=== PATIENT | male | born 1950 | race Caucasian/White ===

== ENCOUNTER 2017-10-28 10:27 | Inpatient (IN) ==
[2017-10-28] MEDS ORDERED: Propofol 1000 mg/100 ml Inj 1,000 MG/100 ML BOTTLE ONE (10:47)
[2017-10-28 11:20] LABS: Anion Gap 12 meq/L (5-15); Blood Urea Nitrogen 25 mg/dL (7-18); Calcium 8.8 mg/dL (8.5-10.1); Carbon Dioxide 22.1 meq/L (21.0-32.0); Chloride 110 meq/L (98-107); Glomerular Filtration Rate 50 mL/min (>89); Glucose,Random 199 mg/dL (74-106); Potassium 4.2 meq/L (3.5-5.1); Sodium 144 meq/L (136-145)
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
[2017-10-28] MEDS ORDERED: Midazolam Inj 5 MG/ML 1 ML Vial ONE (11:22)
[2017-10-28] MEDS ORDERED: Lidocaine 1% Inj 50 ML Vial ONE (11:29)
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
[2017-10-28] MEDS ORDERED: Midazolam Inj 5 MG/ML 1 ML Vial IV.PUSH ONE (12:30)
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
[2017-10-28] MEDS ORDERED: Propofol 1000 mg/100 ml Inj 1,000 MG/100 ML BOTTLE IV.CONT PRN (12:59)
[2017-10-28] MEDS ORDERED: fentaNYL 10 mcg/mL Premix Drip 2,500 MCG/250 ML BAG IV.SIG PRN (13:01)
[2017-10-28] MEDS ORDERED: Dextrose 50% in Water 50 ML Vial IV.PUSH PRN (13:02)
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
[2017-10-28] MEDS ORDERED: Naloxone Inj 0.4 MG/ML Vial IV.PUSH PRN (13:13)
[2017-10-28] MEDS ORDERED: Post-op Orders (for Pharmacy) OTHER ONE (13:13)
[2017-10-28] MEDS ORDERED: Bisacodyl 10 MG Supp RECTAL PRN (13:13)
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
[2017-10-28] MEDS: Propofol 1000 mg/100 ml Inj 1,000 MG/100 ML BOTTLE IV.CONT PRN ×3 (13:36→19:19)
[2017-10-28] MEDS: fentaNYL 10 mcg/mL Premix Drip 2,500 MCG/250 ML BAG IV.SIG PRN (13:39)
[2017-10-28] MEDS: Sod Chloride 0.9% Inj 1,000 ML IV.CONT SCH ×2 (13:45→23:29)
[2017-10-28 13:54] LABS: ABG Base Excess -2.1 mmol/L (-2-2); ABG PCO2 35 mmHg (38-42); ABG PO2 101 mmHg (61-120)
[2017-10-28] MEDS: Pantoprazole Inj 40 MG Vial IV.PUSH SCH (14:01)
[2017-10-28] MEDS: Oral Hygiene Kit OROPHARYNG SCH (16:10)
[2017-10-28 16:15] LABS: Baso % (Auto) 0.2 % (0.0-2.0); Eos % (Auto) 0.2 % (0.0-4.0); Hematocrit 35.9 % (39.0-51.0); Hemoglobin 11.6 gm/dL (13.0-17.0); Lymph # (Auto) 1.2 th/mm3 (1.0-4.8); Lymph % (Auto) 9.5 % (9.0-44.0); Mean Corpuscular HGB Conc 32.4 % (32.0-36.0); Mean Corpuscular Hemoglobin 29.4 pg (27.0-34.0); Mean Corpuscular Volume 90.8 fL (80.0-100.0); Mean Platelet Volume 8.5 fL (7.0-11.0); Mono # (Auto) 1.3 th/mm3 (0.0-0.9); Mono % (Auto) 10.5 % (0.0-8.0); Neut % (Auto) 79.6 % (16.0-70.0); Platelet Count 191 th/mm3 (150-450); Red Blood Count 3.95 mil/mm3 (4.50-5.90); Red Cell Distribution Width 13.9 % (11.6-17.2); White Blood Count 12.5 th/mm3 (4.0-11.0)
[2017-10-28 16:31] LABS: Activated Partial Thrombo Time 23.8 sec (24.3-30.1); INR 1.1 Ratio; Prothrombin Time 10.9 sec (9.8-11.6)
[2017-10-28] MEDS ORDERED: Docusate Sodium 100 MG Capsule PO SCH (21:00)
[2017-10-28] MEDS: Chlorhexidine 0.12% Oral Kit 15 ML UDC OROPHARYNG SCH (23:29)
[2017-10-28] MEDS: Senna/Docusate Sodium 8.6/50 MG Tablet PO SCH (23:29)
[2017-10-29 00:26] LABS: Amphetamine Screen,Urine Neg (Neg); Barbiturate Screen,Urine Neg (Neg); Cannabinoid Screen,Urine Neg (Neg); Cocaine Screen,Urine Neg (Neg)
[2017-10-29 00:31] LABS: Opiate Screen,Urine Pos (Neg)
[2017-10-29] MEDS: Oral Hygiene Kit OROPHARYNG SCH ×4 (00:57→16:07)
[2017-10-29] MEDS: Propofol 1000 mg/100 ml Inj 1,000 MG/100 ML BOTTLE IV.CONT PRN ×3 (02:08→07:41)
[2017-10-29] MEDS ORDERED: Chlorhexidine Gluconate 2% 1 Pack (2 Cloths) TOPICAL PRN (04:00)
[2017-10-29] MEDS: Chlorhexidine Gluconate 2% 1 Pack (2 Cloths) TOPICAL SCH (04:47)
[2017-10-29] MEDS: fentaNYL 10 mcg/mL Premix Drip 2,500 MCG/250 ML BAG IV.SIG PRN ×2 (04:47→22:29)
--- NOTE | 2017-10-29 05:21 | XR ---
EXAM DATE: 10/29/2017 5:03 AM EDT AGE/SEX: 67 years / Male INDICATIONS: Shortness of breath. CLINICAL DATA: This is the patient's subsequent encounter. Patient reports that signs and symptoms h ave been present for 2 days and indicates a pain score of Nonresponsive. MEDICAL/SURGICAL HISTORY: Non-responsive. Non-responsive. COMPARISON: [facility], CHEST 1V SINGLE AP, 10/28/2017. . FINDINGS: Endotracheal tube and central line are stable. Nasogastric tube descends to the stomach. Left thoraco stomy tube is in place. There is mild asymmetric density over the left chest which may reflect layeri ng effusion or diffuse parenchymal process. Cardiac contours are unchanged. CONCLUSION: Slight interval worsening in aeration on the left. Electronically signed by: Ivan Flores MD 10/29/2017 5:19 AM EDT
[2017-10-29 05:50] LABS: ABG Base Excess -2.4 mmol/L (-2-2); ABG PCO2 32 mmHg (38-42); ABG PO2 117 mmHg (61-120)
[2017-10-29 05:59] LABS: Baso % (Auto) 0.3 % (0.0-2.0); Eos % (Auto) 0.4 % (0.0-4.0); Hematocrit 38.3 % (39.0-51.0); Hemoglobin 12.8 gm/dL (13.0-17.0); Lymph # (Auto) 2.2 th/mm3 (1.0-4.8); Lymph % (Auto) 20.7 % (9.0-44.0); Mean Corpuscular HGB Conc 33.5 % (32.0-36.0); Mean Corpuscular Hemoglobin 29.9 pg (27.0-34.0); Mean Corpuscular Volume 89.2 fL (80.0-100.0); Mean Platelet Volume 8.7 fL (7.0-11.0); Mono # (Auto) 1.2 th/mm3 (0.0-0.9); Mono % (Auto) 11.4 % (0.0-8.0); Neut % (Auto) 67.2 % (16.0-70.0); Platelet Count 200 th/mm3 (150-450); Red Blood Count 4.29 mil/mm3 (4.50-5.90); Red Cell Distribution Width 14.2 % (11.6-17.2); White Blood Count 10.5 th/mm3 (4.0-11.0)
[2017-10-29 06:12] LABS: Alanine Aminotransferase 28 U/L (12-78); Albumin 3.3 g/dL (3.4-5.0); Anion Gap 8 meq/L (5-15); Aspartate Aminotransferase 74 U/L (15-37); Blood Urea Nitrogen 24 mg/dL (7-18); Calcium 8.4 mg/dL (8.5-10.1); Carbon Dioxide 22.8 meq/L (21.0-32.0); Chloride 111 meq/L (98-107); Glomerular Filtration Rate 72 mL/min (>89); Glucose,Random 111 mg/dL (74-106); Sodium 142 meq/L (136-145)
[2017-10-29 06:15] LABS: Alkaline Phosphatase 67 U/L (45-117); Total Protein 7.4 g/dL (6.4-8.2)
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
[2017-10-29] MEDS: Pantoprazole Inj 40 MG Vial IV.PUSH SCH (08:15)
[2017-10-29] MEDS: Senna/Docusate Sodium 8.6/50 MG Tablet PO SCH ×2 (08:15→22:13)
[2017-10-29] MEDS: Chlorhexidine 0.12% Oral Kit 15 ML UDC OROPHARYNG SCH ×2 (08:15→22:13)
[2017-10-29] MEDS: Sod Chloride 0.9% Inj 1,000 ML IV.CONT SCH ×2 (08:15→18:12)
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
--- NOTE | 2017-10-29 10:12 | CT ---
EXAM DATE: 10/29/2017 10:03 AM EDT AGE/SEX: 67 years / Male INDICATIONS: Trauma, follow up bleed. CLINICAL DATA: This is the patient's subsequent encounter. Patient reports that signs and symptoms h ave been present for 1 day and indicates a pain score of Nonresponsive. MEDICAL/SURGICAL HISTORY: None. None. RADIATION DOSE: 64.54 CTDI (mGy) COMPARISON: [facility] [place] HEAD W/O CONTRAST, 10/28/2017. . TECHNIQUE: CT of the head without contrast. Using automated exposure control and adjustment of the mA and/or kV according to patient size, radiation dose was kept as low as reasonably achievable to ob tain optimal diagnostic quality images. DICOM format image data is available electronically for revi ew and comparison. FINDINGS: Cerebrum: Scattered foci of acute subarachnoid hemorrhage are again noted within the high parietal r egions bilaterally. No midline shift is noted. Mild cerebral atrophy is noted bilaterally. No acute i nfarction is noted. No ventriculomegaly is noted. Posterior Fossa: The cerebellum and brainstem are intact. The 4th ventricle is midline. The cerebe llopontine angle is unremarkable. Extracranial: A prosthetic left globe is noted. Shrapnel is noted within the left temporal deep subc utaneous tissues. Mild mucosal thickening is noted within the right sphenoid sinus. Skull: The calvaria is intact. No evidence of skull fracture. CONCLUSION: 1. Scattered foci of acute subarachnoid hemorrhage within the right high parietal regions bilaterall y which are stable. 2. Mild cerebral atrophy. 3. No acute infarct, midline shift or ventriculomegaly. 4. Mild mucosal thickening within the right sphenoid sinus. . Electronically signed by: Po Borjas MD 10/29/2017 10:11 AM EDT
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
--- NOTE | 2017-10-29 21:36 | ECG ---
Date Performed: 10/28/2017 Time Performed: 16:12:15 PTAGE: 67 years EKG: Sinus rhythm NONSPECIFIC T-WAVE ABNORMALITY BORDERLINE ECG NO PREVIOUS TRACING DOCTOR: Jt Mai Interpretating Date/Time 10/29/2017 21:34:28
[2017-10-30] MEDS: Oral Hygiene Kit OROPHARYNG SCH ×4 (01:16→15:27)
[2017-10-30] MEDS: Sod Chloride 0.9% Inj 1,000 ML IV.CONT SCH ×2 (04:52→14:14)
[2017-10-30] MEDS: Chlorhexidine Gluconate 2% 1 Pack (2 Cloths) TOPICAL SCH (05:29)
[2017-10-30 05:36] LABS: Baso # (Auto) 0.1 th/mm3 (0.0-0.2); Baso % (Auto) 0.6 % (0.0-2.0); Eos # (Auto) 0.2 th/mm3 (0.0-0.4); Eos % (Auto) 1.4 % (0.0-4.0); Hematocrit 33.9 % (39.0-51.0); Hemoglobin 11.4 gm/dL (13.0-17.0); Lymph # (Auto) 2.1 th/mm3 (1.0-4.8); Lymph % (Auto) 17.6 % (9.0-44.0); Mean Corpuscular HGB Conc 33.8 % (32.0-36.0); Mean Corpuscular Hemoglobin 29.9 pg (27.0-34.0); Mean Corpuscular Volume 88.7 fL (80.0-100.0); Mean Platelet Volume 8.5 fL (7.0-11.0); Mono # (Auto) 1.4 th/mm3 (0.0-0.9); Mono % (Auto) 11.3 % (0.0-8.0); Neut # (Auto) 8.4 th/mm3 (1.8-7.7); Neut % (Auto) 69.1 % (16.0-70.0); Platelet Count 155 th/mm3 (150-450); Red Blood Count 3.82 mil/mm3 (4.50-5.90); Red Cell Distribution Width 14.6 % (11.6-17.2); White Blood Count 12.2 th/mm3 (4.0-11.0)
[2017-10-30 05:57] LABS: Albumin 2.8 g/dL (3.4-5.0); Anion Gap 10 meq/L (5-15); Aspartate Aminotransferase 44 U/L (15-37); Blood Urea Nitrogen 18 mg/dL (7-18); Calcium 8.2 mg/dL (8.5-10.1); Carbon Dioxide 22.3 meq/L (21.0-32.0); Chloride 110 meq/L (98-107); Glomerular Filtration Rate Greater Than 89 mL/min (>89); Glucose,Random 107 mg/dL (74-106); Potassium 3.5 meq/L (3.5-5.1); Sodium 142 meq/L (136-145)
[2017-10-30 05:58] LABS: Alanine Aminotransferase 19 U/L (12-78)
[2017-10-30 06:00] LABS: Alkaline Phosphatase 58 U/L (45-117); Total Protein 6.9 g/dL (6.4-8.2)
--- NOTE | 2017-10-30 06:05 | XR ---
EXAM DATE: 10/30/2017 4:59 AM EDT AGE/SEX: 67 years / Male INDICATIONS: Shortness of breath. CLINICAL DATA: This is the patient's subsequent encounter. Patient reports that signs and symptoms h ave been present for 3 days and indicates a pain score of Nonresponsive. MEDICAL/SURGICAL HISTORY: Non-responsive. Non-responsive. COMPARISON: [facility], CHEST 1V SINGLE AP, 10/29/2017. . FINDINGS: Endotracheal tube, nasogastric tube and left subclavian central line are stable. Left thoracostomy tu be is noted. Mild haziness in the perihilar regions and left base again noted, however improved parti cularly on the left from prior exam. Cardiac contours are unchanged. CONCLUSION: Slight improvement in aeration. Electronically signed by: Ivan Flores MD 10/30/2017 6:04 AM EDT
[2017-10-30] MEDS: Chlorhexidine 0.12% Oral Kit 15 ML UDC OROPHARYNG SCH ×2 (07:39→20:50)
[2017-10-30] MEDS: Pantoprazole Inj 40 MG Vial IV.PUSH SCH (08:32)
[2017-10-30] MEDS: Senna/Docusate Sodium 8.6/50 MG Tablet PO SCH ×2 (08:33→20:50)
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
[2017-10-30] MEDS: Multivitamin Inj 10 ML, Thiamine Inj 100 MG, Folic Acid Inj 1 MG in Sodium Chlor 0.9% I... IV.SIG SCH (10:42)
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
[2017-10-30] MEDS: Morphine Inj 4 MG/ML Vial IV.PUSH PRN ×3 (12:16→18:49)
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
[2017-10-30] MEDS ORDERED: Labetalol HCl Inj 100 MG/20 ML Vial IV.PUSH ONE (13:45)
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
[2017-10-31] MEDS: Oral Hygiene Kit OROPHARYNG SCH ×4 (01:58→15:14)
[2017-10-31] MEDS: Morphine Inj 4 MG/ML Vial IV.PUSH PRN (02:04)
--- NOTE | 2017-10-31 04:48 | XR ---
EXAM DATE: 10/31/2017 3:52 AM EDT AGE/SEX: 67 years / Male INDICATIONS: Short of breath. CLINICAL DATA: This is the patient's subsequent encounter. Patient reports that signs and symptoms h ave been present for 4 - 6 days and indicates a pain score of Nonresponsive. MEDICAL/SURGICAL HISTORY: Non-responsive. Non-responsive. COMPARISON: [facility] [place], CHEST 1V SINGLE AP, 10/30/2017. . FINDINGS: Mild consolidation and small effusions seen of the left lung base. Left chest tube remains in place. No perceptible pneumothorax. Right lung remains clear. Heart size stable, within normal limits. Endotracheal tube, nasogastric tube and left subclavian line have all been removed. CONCLUSION: 1. Small effusion and mild consolidation at the left lung base. 2. Left chest tube remains in place. No pneumothorax seen. 3. Interim extubation. Nasogastric tube and left subclavian line also removed since yesterday. Electronically signed by: Ivan Welch MD 10/31/2017 4:46 AM EDT
[2017-10-31 05:08] LABS: Baso % (Auto) 0.2 % (0.0-2.0); Eos % (Auto) 0.3 % (0.0-4.0); Hematocrit 35.5 % (39.0-51.0); Hemoglobin 11.7 gm/dL (13.0-17.0); Lymph # (Auto) 1.1 th/mm3 (1.0-4.8); Lymph % (Auto) 7.5 % (9.0-44.0); Mean Corpuscular HGB Conc 32.8 % (32.0-36.0); Mean Corpuscular Hemoglobin 29.5 pg (27.0-34.0); Mean Corpuscular Volume 89.8 fL (80.0-100.0); Mean Platelet Volume 9.6 fL (7.0-11.0); Mono # (Auto) 1.3 th/mm3 (0.0-0.9); Mono % (Auto) 8.6 % (0.0-8.0); Neut # (Auto) 12.5 th/mm3 (1.8-7.7); Neut % (Auto) 83.4 % (16.0-70.0); Platelet Count 169 th/mm3 (150-450); Red Blood Count 3.96 mil/mm3 (4.50-5.90); Red Cell Distribution Width 14.1 % (11.6-17.2)
[2017-10-31] MEDS: Chlorhexidine Gluconate 2% 1 Pack (2 Cloths) TOPICAL SCH (05:17)
[2017-10-31 05:29] LABS: Anion Gap 11 meq/L (5-15); Blood Urea Nitrogen 16 mg/dL (7-18); Calcium 8.5 mg/dL (8.5-10.1); Carbon Dioxide 20.3 meq/L (21.0-32.0); Chloride 110 meq/L (98-107); Glomerular Filtration Rate Greater Than 89 mL/min (>89); Glucose,Random 104 mg/dL (74-106); Potassium 3.6 meq/L (3.5-5.1); Sodium 141 meq/L (136-145)
[2017-10-31] MEDS: Senna/Docusate Sodium 8.6/50 MG Tablet PO SCH ×2 (08:02→21:05)
[2017-10-31] MEDS: Chlorhexidine 0.12% Oral Kit 15 ML UDC OROPHARYNG SCH (08:02)
[2017-10-31] MEDS: Pantoprazole Inj 40 MG Vial IV.PUSH SCH (08:06)
[2017-10-31] MEDS: Sod Chloride 0.9% Inj 1,000 ML IV.CONT SCH (08:07)
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
[2017-10-31 09:38] LABS: ABG Base Excess -2.2 mmol/L (-2-2); ABG PCO2 25 mmHg (38-42); ABG PO2 55 mmHg (61-120)
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
[2017-10-31] MEDS: Enoxaparin Inj 40 MG/0.4 ML Syringe SQ SCH (10:58)
[2017-10-31] MEDS: Multivitamin Inj 10 ML, Thiamine Inj 100 MG, Folic Acid Inj 1 MG in Sodium Chlor 0.9% I... IV.SIG SCH (12:53)
--- NOTE | 2017-10-31 13:51 | P.DIET ---
Nutritional Evaluation Screening comments: NPO Alert. Pt has been npo x [address] if needed.
--- NOTE | 2017-11-01 03:59 | XR ---
EXAM DATE: 11/01/2017 3:55 AM EDT AGE/SEX: 67 years / Male INDICATIONS: Respiratory failure. CLINICAL DATA: This is the patient's subsequent encounter. Patient reports that signs and symptoms h ave been present for 4 - 6 days and indicates a pain score of Nonresponsive. MEDICAL/SURGICAL HISTORY: Non-responsive. Non-responsive. COMPARISON: [facility], CHEST 1V SINGLE AP, 10/31/2017. . FINDINGS: Mild bibasilar consolidation and small left pleural effusion similar to before. Left chest tube is be en removed. I don't see a pneumothorax. Heart size stable, upper limits of normal. A nasogastric tube is been placed, courses into the stomach but tip is not included on the study. CONCLUSION: 1. No significant change mild bibasilar consolidation and small left pleural effusion. 2. Left chest tube out. No pneumothorax. 3. New nasogastric tube that courses into the stomach but tip is not included on the study. Electronically signed by: Ivan Welch MD 11/01/2017 3:58 AM EDT
[2017-11-01 04:38] LABS: Baso % (Auto) 0.1 % (0.0-2.0); Hematocrit 33.4 % (39.0-51.0); Hemoglobin 11.4 gm/dL (13.0-17.0); Lymph # (Auto) 1.1 th/mm3 (1.0-4.8); Lymph % (Auto) 7.6 % (9.0-44.0); Mean Corpuscular HGB Conc 34.1 % (32.0-36.0); Mean Platelet Volume 9.5 fL (7.0-11.0); Mono # (Auto) 1.2 th/mm3 (0.0-0.9); Mono % (Auto) 8.1 % (0.0-8.0); Neut # (Auto) 11.9 th/mm3 (1.8-7.7); Neut % (Auto) 84.2 % (16.0-70.0); Platelet Count 175 th/mm3 (150-450); Red Cell Distribution Width 13.9 % (11.6-17.2); White Blood Count 14.2 th/mm3 (4.0-11.0)
[2017-11-01 05:03] LABS: Anion Gap 13 meq/L (5-15); Blood Urea Nitrogen 21 mg/dL (7-18); Calcium 8.3 mg/dL (8.5-10.1); Carbon Dioxide 21.6 meq/L (21.0-32.0); Chloride 112 meq/L (98-107); Glomerular Filtration Rate Greater Than 89 mL/min (>89); Glucose,Random 92 mg/dL (74-106); Sodium 147 meq/L (136-145)
[2017-11-01 05:17] LABS: Potassium 2.8 meq/L (3.5-5.1)
[2017-11-01] MEDS: Chlorhexidine Gluconate 2% 1 Pack (2 Cloths) TOPICAL SCH (05:24)
[2017-11-01] MEDS: Oral Hygiene Kit OROPHARYNG SCH ×3 (05:24→17:12)
[2017-11-01] MEDS: Sod Chloride 0.9% Inj 1,000 ML IV.CONT SCH ×2 (05:24→17:11)
[2017-11-01 05:36] LABS: ABG Base Excess -2.2 mmol/L (-2-2); ABG PCO2 26 mmHg (38-42); ABG PO2 76 mmHg (61-120)
[2017-11-01] MEDS ORDERED: Potassium Phosphate 500 MG Soluble Tablet PO PRN ×2 (05:48)
[2017-11-01] MEDS ORDERED: Magnesium Sulfate Inj 2 GM in Sodium Chlor 0.9% Inj 96 ML IV.SIG PRN (05:48)
[2017-11-01] MEDS ORDERED: Magnesium Oxide 400 MG Tablet PO PRN (05:48)
[2017-11-01] MEDS ORDERED: Potassium Phosphate Inj 30 MMOL in Sodium Chlor 0.9% Inj 250 ML IV.SIG PRN (05:48)
[2017-11-01] MEDS ORDERED: Sodium Phosphate Inj 30 MMOL in Sodium Chlor 0.9% Inj 250 ML IV.SIG PRN (05:48)
[2017-11-01] MEDS ORDERED: Potassium Chlor 40 mEq Premix 40 MEQ/100 ML PIGGYBACK IV.SIG PRN ×2 (05:48)
[2017-11-01] MEDS ORDERED: Magnesium Sulfate Inj 4 GM in Sodium Chlor 0.9% Inj 92 ML IV.SIG PRN (05:48)
[2017-11-01] MEDS: Potassium Chlor 20 mEq Premix 20 MEQ/100 ML PIGGYBACK IV.SIG PRN ×5 (07:34→22:07)
--- NOTE | 2017-11-01 08:20 | MG ---
cc: Zurdo Hall MD EEG RECORD NUMBER: #[id number]. FINDINGS: 4 Hz activity with underlying 1-2 Hz delta activity occurring 20-40 mV in generalized fashion. Bilateral synchronous waves. No seizure activity noted. Limited driving with photic stimulation. Single lead EKG showing sinus rhythm. INTERPRETATION: Mild to moderate encephalopathy. No epileptic activity. Clinical correlation. Zurdo Hall MD MG/ , 07:00 AM , 07:04 AM
[2017-11-01] MEDS: Pantoprazole Inj 40 MG Vial IV.PUSH SCH (08:54)
[2017-11-01] MEDS: Enoxaparin Inj 40 MG/0.4 ML Syringe SQ SCH (08:54)
[2017-11-01] MEDS: Senna/Docusate Sodium 8.6/50 MG Tablet PO SCH (08:55)
[2017-11-01] MEDS: Multivitamin Inj 10 ML, Thiamine Inj 100 MG, Folic Acid Inj 1 MG in Sodium Chlor 0.9% I... IV.SIG SCH (11:13)
[2017-11-01] MEDS ORDERED: Propofol Inj 500 MG/50 ML Vial ONE (11:58)
--- NOTE | 2017-11-01 12:53 | XR ---
EXAM DATE: 11/01/2017 12:47 PM EDT AGE/SEX: 67 years / Male INDICATIONS: ET tube placement. CLINICAL DATA: This is the patient's subsequent encounter. Patient reports that signs and symptoms h ave been present for 4 - 6 days and indicates a pain score of Nonresponsive. MEDICAL/SURGICAL HISTORY: Non-responsive. Non-responsive. COMPARISON: [facility] [place]ST 1V SINGLE AP, 11/01/2017. . FINDINGS: There is patchy consolidation and atelectasis in the right lower lobe, and dense retrocardiac opacifi cation with possible small left effusion again seen. Endotracheal tube tip is noted 1.5 cm above the ash. Enteric tube has been removed. CONCLUSION: Endotracheal tube as above. Electronically signed by: Shiva Olsen MD 11/01/2017 12:52 PM EDT
[2017-11-01 13:29] LABS: ABG Base Excess -3.2 mmol/L (-2-2); ABG PCO2 34 mmHg (38-42); ABG PO2 127 mmHg (61-120)
[2017-11-01] MEDS: Propofol 1000 mg/100 ml Inj 1,000 MG/100 ML BOTTLE IV.CONT PRN ×3 (13:55→21:54)
[2017-11-01] MEDS ORDERED: Haloperidol Inj 5 MG/ML Ampul IV.PUSH PRN (14:21)
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
[2017-11-01] MEDS: Midazolam 50 MG/50 ML Inj 50 MG/50 ML BAG IV.CONT PRN (17:36)
--- NOTE | 2017-11-01 21:41 | MP ---
cc: Rosa Stewart MD DATE OF OPERATION: 11/01/2017 PREOPERATIVE DIAGNOSIS: 1. Respiratory insufficiency. 2. Neurologic trauma. 3. Traumatic brain injury. 4. Obtundation. 5. Retained secretions. POSTOPERATIVE DIAGNOSES: 1. Respiratory insufficiency. 2. Neurologic trauma. 3. Traumatic brain injury. 4. Obtundation. 5. Retained secretions. OPERATIVE PROCEDURE: Intubation. SURGEON: Rosa Stewart MD ANESTHESIA: Sedation, propofol and rocuronium. DESCRIPTION OF PROCEDURE: The patient was prepared in the usual fashion, hyperoxygenated with a facemask, given 75 mg of rocuronium and then his oral cavity is visualized. The patient had previous jaw surgery and neck surgery, so neck is inflexible and the mandible does not open too far. The patient also has disarray as far as dentition is concerned and care is taken not to injure any teeth. The patient was a very difficult intubation when he initially came. At this point, the mouth is suctioned out of the secretions and then a GlideScope is inserted. The vocal cords are readily visualized and the size 8 endotracheal tube is placed without difficulty. The breath sounds are checked on both sides and connected to the ventilator. The patient tolerated the procedure well. Rosa Stewart MD SJ/liliya , 04:17 PM , 04:22 PM
[2017-11-02] MEDS: Propofol 1000 mg/100 ml Inj 1,000 MG/100 ML BOTTLE IV.CONT PRN ×5 (00:33→21:51)
[2017-11-02] MEDS: Midazolam 50 MG/50 ML Inj 50 MG/50 ML BAG IV.CONT PRN ×2 (00:33→13:45)
[2017-11-02] MEDS: Potassium Chlor 20 mEq Premix 20 MEQ/100 ML PIGGYBACK IV.SIG PRN (00:34)
--- NOTE | 2017-11-02 03:56 | XR ---
EXAM DATE: 11/02/2017 3:47 AM EDT AGE/SEX: 67 years / Male INDICATIONS: Shortness of breath, possible pulmonary disease. CLINICAL DATA: This is the patient's subsequent encounter. Patient reports that signs and symptoms h ave been present for 4 - 6 days and indicates a pain score of Nonresponsive. MEDICAL/SURGICAL HISTORY: Non-responsive. Non-responsive. COMPARISON: [facility] [place], CHEST 1V SINGLE AP, 11/01/2017. . FINDINGS: Right base has cleared in the interim. On the left, mild consolidation and small effusion at the base not significantly changed. I don't see a pneumothorax. Endotracheal tube tip is about 1.5 cm above the ash, unchanged. There is a nasogastric tube now pr esent with tip in the upper stomach, sidehole near the GE junction. CONCLUSION: 1. Parenchymal consolidation and small effusion at the left lung base not significantly changed. 2. Resolving right base consolidation. 3. New nasogastric tube with tip in the upper stomach, sidehole near the GE junction. 4. No significant change endotracheal tube tip about 1.5 cm above the ash. Electronically signed by: Ivan Welch MD 11/02/2017 3:54 AM EDT
[2017-11-02 04:47] LABS: Baso % (Auto) 0.1 % (0.0-2.0); Eos # (Auto) 0.1 th/mm3 (0.0-0.4); Eos % (Auto) 0.8 % (0.0-4.0); Hematocrit 32.2 % (39.0-51.0); Hemoglobin 10.8 gm/dL (13.0-17.0); Lymph % (Auto) 7.3 % (9.0-44.0); Mean Corpuscular HGB Conc 33.5 % (32.0-36.0); Mean Corpuscular Hemoglobin 30.1 pg (27.0-34.0); Mean Corpuscular Volume 89.7 fL (80.0-100.0); Mono # (Auto) 1.2 th/mm3 (0.0-0.9); Mono % (Auto) 8.7 % (0.0-8.0); Neut # (Auto) 11.4 th/mm3 (1.8-7.7); Neut % (Auto) 83.1 % (16.0-70.0); Platelet Count 165 th/mm3 (150-450); Red Blood Count 3.59 mil/mm3 (4.50-5.90); Red Cell Distribution Width 14.3 % (11.6-17.2); White Blood Count 13.8 th/mm3 (4.0-11.0)
[2017-11-02 05:12] LABS: Albumin 2.4 g/dL (3.4-5.0); Anion Gap 11 meq/L (5-15); Aspartate Aminotransferase 40 U/L (15-37); Blood Urea Nitrogen 23 mg/dL (7-18); Calcium 8.1 mg/dL (8.5-10.1); Carbon Dioxide 21.8 meq/L (21.0-32.0); Chloride 116 meq/L (98-107); Glomerular Filtration Rate Greater Than 89 mL/min (>89); Glucose,Random 91 mg/dL (74-106); Potassium 3.6 meq/L (3.5-5.1); Sodium 149 meq/L (136-145)
[2017-11-02 05:15] LABS: Alanine Aminotransferase 14 U/L (12-78); Alkaline Phosphatase 65 U/L (45-117)
[2017-11-02 06:10] LABS: ABG Base Excess -2.5 mmol/L (-2-2); ABG PCO2 32 mmHg (38-42); ABG PO2 72 mmHg (61-120)
[2017-11-02] MEDS: Oral Hygiene Kit OROPHARYNG SCH ×4 (06:50→16:34)
[2017-11-02] MEDS: Chlorhexidine Gluconate 2% 1 Pack (2 Cloths) TOPICAL SCH (06:51)
[2017-11-02] MEDS: Chlorhexidine 0.12% Oral Kit 15 ML UDC OROPHARYNG SCH ×3 (06:51→21:46)
[2017-11-02] MEDS: Senna/Docusate Sodium 8.6/50 MG Tablet PO SCH ×3 (06:51→21:47)
[2017-11-02] MEDS: Enoxaparin Inj 40 MG/0.4 ML Syringe SQ SCH (08:01)
[2017-11-02] MEDS: Pantoprazole Inj 40 MG Vial IV.PUSH SCH (08:01)
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
[2017-11-02] MEDS: Sod Chloride 0.9% Inj 1,000 ML IV.CONT SCH (13:47)
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
[2017-11-03] MEDS: Oral Hygiene Kit OROPHARYNG SCH ×5 (02:29→23:11)
[2017-11-03] MEDS: Sod Chloride 0.9% Inj 1,000 ML IV.CONT SCH ×2 (02:30→18:07)
[2017-11-03] MEDS: Propofol 1000 mg/100 ml Inj 1,000 MG/100 ML BOTTLE IV.CONT PRN ×3 (03:01→19:45)
[2017-11-03] MEDS: Midazolam 50 MG/50 ML Inj 50 MG/50 ML BAG IV.CONT PRN ×2 (03:02→19:44)
[2017-11-03 03:53] LABS: Baso % (Auto) 0.2 % (0.0-2.0); Eos # (Auto) 0.1 th/mm3 (0.0-0.4); Eos % (Auto) 0.6 % (0.0-4.0); Hematocrit 36.5 % (39.0-51.0); Hemoglobin 12.4 gm/dL (13.0-17.0); Lymph # (Auto) 2.1 th/mm3 (1.0-4.8); Lymph % (Auto) 13.1 % (9.0-44.0); Mean Corpuscular Hemoglobin 30.5 pg (27.0-34.0); Mean Corpuscular Volume 89.8 fL (80.0-100.0); Mean Platelet Volume 10.2 fL (7.0-11.0); Mono # (Auto) 1.6 th/mm3 (0.0-0.9); Mono % (Auto) 10.1 % (0.0-8.0); Neut # (Auto) 12.2 th/mm3 (1.8-7.7); Platelet Count 178 th/mm3 (150-450); Red Blood Count 4.07 mil/mm3 (4.50-5.90); Red Cell Distribution Width 14.1 % (11.6-17.2); White Blood Count 16.1 th/mm3 (4.0-11.0)
[2017-11-03 03:54] LABS: Alanine Aminotransferase 18 U/L (12-78); Albumin 2.5 g/dL (3.4-5.0); Anion Gap 14 meq/L (5-15); Aspartate Aminotransferase 51 U/L (15-37); Blood Urea Nitrogen 24 mg/dL (7-18); Calcium 8.5 mg/dL (8.5-10.1); Carbon Dioxide 21.6 meq/L (21.0-32.0); Chloride 113 meq/L (98-107); Glomerular Filtration Rate Greater Than 89 mL/min (>89); Glucose,Random 100 mg/dL (74-106); Potassium 3.8 meq/L (3.5-5.1); Sodium 149 meq/L (136-145)
[2017-11-03 03:56] LABS: Alkaline Phosphatase 94 U/L (45-117); Total Protein 7.7 g/dL (6.4-8.2)
[2017-11-03 04:24] LABS: Eosinophils 1 % (0-4); Lymphocytes 20 % (9-44); Monocytes 8 % (0-8); Platelet Estimate Normal (Normal)
[2017-11-03 04:25] LABS: Platelet Morphology Normal (Normal)
[2017-11-03 04:26] LABS: Ovalocytes 1+
[2017-11-03 05:57] LABS: ABG Base Excess -0.7 mmol/L (-2-2); ABG PCO2 36 mmHg (38-42); ABG PO2 61 mmHg (61-120)
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
[2017-11-03] MEDS ORDERED: ceFAZolin Inj 2,000 MG in Sodium Chlor 0.9% Inj 100 ML IV.SIG SCH (08:00)
[2017-11-03] MEDS: Chlorhexidine 0.12% Oral Kit 15 ML UDC OROPHARYNG SCH ×2 (08:14→20:22)
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
[2017-11-03] MEDS: Pantoprazole Inj 40 MG Vial IV.PUSH SCH (09:09)
[2017-11-03] MEDS: Senna/Docusate Sodium 8.6/50 MG Tablet PO SCH ×2 (09:09→20:22)
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
--- NOTE | 2017-11-03 15:14 | GIPROC ---
[facility] [address] [facility]. [facility], [address] EGD WITH PEG PROCEDURE REPORT EXAM DATE: 11/03/2017 PATIENT NAME: Po Foster MR#: [id number] BIRTHDATE: 1950 ATTENDING: Sae Zhu MD ORDER #: [id number] BACTERIOLOGY RESEARCH ASSISTANT: Monica Kruger and Venus Barr STATUS: inpatient INDICATIONS: The patient is a 67 yr old male here for an EGD with PEG due to dysphagia and placement of PEG PROCEDURE PERFORMED: EGD with PEG placement MEDICATIONS: None and Per Anesthesia. TOPICAL ANESTHETIC: CONSENT: The patient understands the risks and benefits of the procedure and understands that these risks include, but are not limited to: sedation, allergic reaction, infection, perforation and/or bleeding. Alternative means of evaluation and treatment include, among others: physical exam, x-rays, and/or surgical intervention. The patient elects to proceed with this endoscopic procedure. medical equipment was checked for proper function. Hand hygiene and appropriate measures for infection prevention was taken. After the risks, benefits and alternatives of the procedure were thoroughly explained, Informed consent was verified, confirmed and timeout was successfully executed by the treatment team. The patient was anesthetized with topical anesthesia and the Pentax [id number] endoscope was introduced through the mouth and advanced to the second portion of the duodenum. The instrument was slowly withdrawn as the mucosa was fully examined. Moderate gastritis was found The stomach was then inflated with air, and by a combination of transillumination and manual palpation, the site for the gastrostomy tube placement was selected and marked on the anterior abdominal wall. The skin of the anterior abdomen was surgically prepped and draped with sterile towels. Utilizing strict sterile technique, the selected site was then anesthetized with 1% xylocaine by injection into the skin and subcutaneous tissue. A 1 cm incision was made through the skin and subcutaneous tissue, and the needle/cannula assembly was then passed through the abdominal wall and through the anterior wall of the stomach, maintaining visualization with the endoscope. A snare device previously placed through the instrument channel was then opened and placed around the cannula, the needle was removed, and the insertion wire was passed through the cannula and into the stomach lumen. The snare was then loosened from the cannula, and repositioned to snare the insertion wire. The snare was then pulled up to the endoscope distal tip, and the scope was then withdrawn bringing with it the snare and insertion wire. The insertion wire was then released from the snare, and then loop-attached to the Ponsky 20 Fr gastrostomy tube. Using the "pull technique", the G-tube was then pulled into place by traction on the insertion wire at the abdominal wall end. The G-tube insertion site was then cleansed once again, and the external bolster was placed over the tube to secure it to the abdominal wall. A sterile dressing was then applied, and the procedure terminated. no abnormalities The gastroscope was then slowly withdrawn and removed. ADVERSE EVENT: There were no complications. IMPRESSIONS: 1. Moderate gastritis was found 2. No abnormalities RECOMMENDATIONS: PEG recomendations: 1- NPO for 6 hours except for meds 2- Flush PEG tube every 6 hours with water and after each PEG feeding 3- May resume regular diet in the morning 4- May use Ensure or Boost etc. for PEG tube feeding REPEAT EXAM: procedure as needed Sae Zhu MD eSigned: Sae Zhu MD 11/03/2017 3:14 PM cc: PATIENT NAME: Po Foster MR#: [id number]
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
[2017-11-04] MEDS: Propofol 1000 mg/100 ml Inj 1,000 MG/100 ML BOTTLE IV.CONT PRN ×4 (00:52→22:05)
[2017-11-04] MEDS: Oral Hygiene Kit OROPHARYNG SCH ×4 (03:06→23:24)
[2017-11-04 04:14] LABS: Baso % (Auto) 0.1 % (0.0-2.0); Eos # (Auto) 0.3 th/mm3 (0.0-0.4); Eos % (Auto) 1.6 % (0.0-4.0); Hematocrit 32.4 % (39.0-51.0); Hemoglobin 10.4 gm/dL (13.0-17.0); Lymph # (Auto) 1.6 th/mm3 (1.0-4.8); Lymph % (Auto) 10.2 % (9.0-44.0); Mean Corpuscular HGB Conc 32.1 % (32.0-36.0); Mean Corpuscular Volume 93.3 fL (80.0-100.0); Mean Platelet Volume 10.4 fL (7.0-11.0); Neut # (Auto) 12.9 th/mm3 (1.8-7.7); Neut % (Auto) 82.1 % (16.0-70.0); Platelet Count 109 th/mm3 (150-450); Red Blood Count 3.47 mil/mm3 (4.50-5.90); Red Cell Distribution Width 14.9 % (11.6-17.2); White Blood Count 15.7 th/mm3 (4.0-11.0)
[2017-11-04 04:26] LABS: Alanine Aminotransferase 18 U/L (12-78); Albumin 2.1 g/dL (3.4-5.0); Anion Gap 13 meq/L (5-15); Aspartate Aminotransferase 33 U/L (15-37); Blood Urea Nitrogen 28 mg/dL (7-18); Calcium 8.2 mg/dL (8.5-10.1); Carbon Dioxide 23.2 meq/L (21.0-32.0); Chloride 114 meq/L (98-107); Glomerular Filtration Rate Greater Than 89 mL/min (>89); Glucose,Random 75 mg/dL (74-106); Potassium 3.7 meq/L (3.5-5.1)
[2017-11-04 04:28] LABS: Alkaline Phosphatase 101 U/L (45-117); Sodium 150 meq/L (136-145); Total Protein 7.2 g/dL (6.4-8.2)
--- NOTE | 2017-11-04 04:40 | XR ---
EXAM DATE: 11/04/2017 4:15 AM EDT AGE/SEX: 67 years / Male INDICATIONS: Respiratory disease. CLINICAL DATA: This is the patient's subsequent encounter. Patient reports that signs and symptoms h ave been present for 1 week and indicates a pain score of Nonresponsive. MEDICAL/SURGICAL HISTORY: . Left pneumothorax. Chest tube, left. [place] [facility] [place] S[place]. . FINDINGS: 2 AP views of the chest. Endotracheal tube remains in place. Persistent bilateral lower lung zone pre dominant pulmonary opacity. No significant interval change. No evidence of pleural effusion or pneumo thorax. Cardiomediastinal silhouette within normal limits. CONCLUSION: No significant interval change in bilateral lower lung zone predominant opacity. Electronically signed by: Capo Ballesteros MD 11/04/2017 4:39 AM EDT
[2017-11-04 06:22] LABS: ABG Base Excess -0.2 mmol/L (-2-2); ABG PCO2 35 mmHg (38-42); ABG PO2 81 mmHg (61-120)
[2017-11-04] MEDS: Chlorhexidine 0.12% Oral Kit 15 ML UDC OROPHARYNG SCH ×2 (08:11→21:11)
[2017-11-04] MEDS: Enoxaparin Inj 40 MG/0.4 ML Syringe SQ SCH (08:12)
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
[2017-11-04] MEDS: Pantoprazole Inj 40 MG Vial IV.PUSH SCH (09:09)
[2017-11-04] MEDS: Senna/Docusate Sodium 8.6/50 MG Tablet PO SCH ×2 (09:09→21:11)
[2017-11-04] MEDS: Sod Chloride 0.9% Inj 1,000 ML IV.CONT SCH (11:12)
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
--- NOTE | 2017-11-04 15:05 | P.PNGI ---
Subjective Interval history: Nonresponsive ventilator management currently in the intensive care , status post PEG tube placement on 11/03/2017 <[place] M - Last Filed: 11/04/17 15:09> Physical Exam Vital signs: Vital Signs 11/03/17 16:00 11/03/17 18:36 11/03/17 20:00 Temperature 98.5 F 98.5 F Pulse Rate 80 81 Respiratory Rate 22 20 19 Blood Pressure 128/67 159/101 H Pulse Oximetry 96 98 97 11/03/17 20:38 11/03/17 22:00 11/04/17 00:00 Temperature 97.9 F Pulse Rate 80 83 87 Respiratory Rate 22 16 Blood Pressure 142/68 H Pulse Oximetry 96 96 11/04/17 00:10 11/04/17 02:00 11/04/17 04:00 Temperature 98.8 F Pulse Rate 86 97 H Respiratory Rate 20 26 H Blood Pressure 120/68 Pulse Oximetry 97 96 11/04/17 04:01 11/04/17 04:40 11/04/17 06:00 Temperature Pulse Rate 96 H 98 H Respiratory Rate 19 20 Blood Pressure Pulse Oximetry 94 L 11/04/17 08:00 11/04/17 09:18 11/04/17 10:00 Temperature 99.9 F H Pulse Rate 98 H 100 H 100 H Respiratory Rate 22 19 Blood Pressure 129/67 Pulse Oximetry 94 L 96 11/04/17 12:00 11/04/17 12:10 11/04/17 14:00 Temperature 101.2 F H Pulse Rate 98 H 104 H Respiratory Rate 21 20 Blood Pressure 133/70 Pulse Oximetry 97 97 Intake & Output 11/03/17 11/04/17 11/04/17 18:59 06:59 18:59 Intake Total 205 / 205 485 / 485 1205 / 1205 Output Total 575 / 575 550 / 550 Balance -370 / -370 -65 / -65 1205 / 1205 Weight 94.3 kg Intake: IV 205 / 205 455 / 455 1205 / 1205 Versed Inj 50 mg In 50 ml @ 2 50 / 50 MG/HR 2 mls/hr IV.CONT TITRATE PRN Rx#:[id number] Diprivan 1000 mg/100 ml Inj 1, 100 / 100 200 / 200 000 mg In 100 ml @ 5 MCG/KG/MIN 2.886 mls/hr IV.CONT TITRATE PRN Rx#:[id number] NS Inj 1,000 ML @ 60 mls/hr IV. 1000 / 1000 CONT .[id number] VANESSA Rx#:[id number] Ofirmev Inj 1,000 mg In 100 ml 100 / 100 100 / 100 @ 400 mls/hr IV.SIG Q6H PRN Rx# :[id number] Keppra Inj 500 MG In NS Inj 100 105 / 105 105 / 105 105 / 105 ML @ 400 mls/hr IV.SIG Q12H VANESSA Rx#:[id number] Tube Irrigant 30 / 30 Output: Urine Amount (Catheter) 575 / 575 550 / 550 Indwelling Urethral Catheter 575 / 575 550 / 550 Other: # Bowel Movements 0 - Constitutional no acute distress, obese, obtunded - Routine HEENT Exam ENT: Present: mucous membranes moist - Routine Respiratory Exam Present: accessory muscle use, patient mechanically ventilated, decreased breath sounds (Ventilator management) - Routine Cardiovascular Exam Present: S1, S2 (Distant) - Routine Abdominal Exam Present: soft (Bowel sounds soft no obvious distention), ostomy (Tube with dressing and secured clean dry and intact) - Urinary Catheter Management Indwelling Temp Sensing Catheter Cath placed during this visit: yes Reason for continuing: Hourly intake/output Insertion date: 10/28/17 Insertion time: 12:30 Indwelling Urethral Catheter Cath placed during this visit: no <Tammi Bush - Last Filed: 11/04/17 15:09> Vital signs: Vital Signs 11/03/17 18:36 11/03/17 20:00 11/03/17 20:38 Temperature 98.5 F Pulse Rate 81 80 Respiratory Rate 20 19 22 Blood Pressure 159/101 H Pulse Oximetry 98 97 96 11/03/17 22:00 11/04/17 00:00 11/04/17 00:10 Temperature 97.9 F Pulse Rate 83 87 Respiratory Rate 16 20 Blood Pressure 142/68 H Pulse Oximetry 96 97 11/04/17 02:00 11/04/17 04:00 11/04/17 04:01 Temperature 98.8 F Pulse Rate 86 97 H 96 H Respiratory Rate 26 H 19 Blood Pressure 120/68 Pulse Oximetry 96 11/04/17 04:40 11/04/17 06:00 11/04/17 08:00 Temperature 99.9 F H Pulse Rate 98 H 98 H Respiratory Rate 20 22 Blood Pressure 129/67 Pulse Oximetry 94 L 94 L 11/04/17 09:18 11/04/17 10:00 11/04/17 12:00 Temperature 101.2 F H Pulse Rate 100 H 100 H 98 H Respiratory Rate 19 21 Blood Pressure 133/70 Pulse Oximetry 96 97 11/04/17 12:10 11/04/17 14:00 11/04/17 16:00 Temperature 100.2 F H Pulse Rate 104 H 96 H Respiratory Rate 20 21 Blood Pressure 124/80 Pulse Oximetry 97 97 11/04/17 16:31 Temperature Pulse Rate 93 H Respiratory Rate 20 Blood Pressure Pulse Oximetry 98 Intake & Output 11/03/17 11/04/17 11/04/17 18:59 06:59 18:59 Intake Total 205 / 205 485 / 485 1205 / 1205 Output Total 575 / 575 550 / 550 Balance -370 / -370 -65 / -65 1205 / 1205 Weight 94.3 kg Intake: IV 205 / 205 455 / 455 1205 / 1205 Versed Inj 50 mg In 50 ml @ 2 50 / 50 MG/HR 2 mls/hr IV.CONT TITRATE PRN Rx#:[id number] Diprivan 1000 mg/100 ml Inj 1, 100 / 100 200 / 200 000 mg In 100 ml @ 5 MCG/KG/MIN 2.886 mls/hr IV.CONT TITRATE PRN Rx#:[id number] NS Inj 1,000 ML @ 60 mls/hr IV. 1000 / 1000 CONT .[id number] VANESSA Rx#:[id number] Ofirmev Inj 1,000 mg In 100 ml 100 / 100 100 / 100 @ 400 mls/hr IV.SIG Q6H PRN Rx# :[id number] Keppra Inj 500 MG In NS Inj 100 105 / 105 105 / 105 105 / 105 ML @ 400 mls/hr IV.SIG Q12H VANESSA Rx#:[id number] Tube Irrigant 30 / 30 Output: Urine Amount (Catheter) 575 / 575 550 / 550 Indwelling Urethral Catheter 575 / 575 550 / 550 Other: # Bowel Movements 0 - Urinary Catheter Management Indwelling Temp Sensing Catheter Cath placed during this visit: no Indwelling Urethral Catheter Cath placed during this visit: no <Sae Zhu - Last Filed: 11/04/17 17:57> Results - Labs CBC & Chem 7: 11/04/17 03:01 11/04/17 03:01 Laboratory Results - last 24 hr 11/03/17 11/03/17 11/04/17 18:18 21:10 03:01 WBC 15.7 H RBC 3.47 L Hgb 10.4 L D Hct 32.4 L MCV 93.3 D MCH 30.0 MCHC 32.1 RDW 14.9 Plt Count 109 L D MPV 10.4 Neut % (Auto) 82.1 H Lymph % (Auto) 10.2 [place] % (Auto) 6.0 Eos % (Auto) 1.6 Baso % (Auto) 0.1 Neut # (Auto) 12.9 H Lymph # (Auto) 1.6 [place] # (Auto) 1.0 H Eos # (Auto) 0.3 Baso # (Auto) 0.0 WBC Differential . Differential Comment Auto diff final Puncture Site Patient Temperature O2 Saturation ABG pH ABG pCO2 ABG pO2 ABG HCO3 ABG O2 Content ABG Base Excess ABG Methemoglobin Leonard Test Hemoglobin Carboxyhemoglobin O2 Delivery Device Vent Setting Inspired O2 Critical Value Sodium Potassium Chloride Carbon Dioxide Anion Gap BUN Creatinine Estimated GFR POC Glucose 103 90 Random Glucose Calcium Magnesium Total Bilirubin AST ALT Alkaline Phosphatase Total Protein Albumin 11/04/17 11/04/17 11/04/17 03:01 03:01 06:12 WBC RBC Hgb Hct MCV MCH MCHC RDW Plt Count MPV Neut % (Auto) Lymph % (Auto) [place] % (Auto) Eos % (Auto) Baso % (Auto) Neut # (Auto) Lymph # (Auto) [place] # (Auto) Eos # (Auto) Baso # (Auto) WBC Differential Differential Comment Puncture Site Right radial Patient Temperature 98.6 O2 Saturation 95 ABG pH 7.45 H ABG pCO2 35 L ABG pO2 81 ABG HCO3 23 ABG O2 Content 19.9 ABG Base Excess -0.2 ABG Methemoglobin 0.9 Leonard Test Present Hemoglobin 15.0 Carboxyhemoglobin 1.0 O2 Delivery Device Ventilator Vent Setting See comments Inspired O2 50 Critical Value No Sodium 150 H Potassium 3.7 Chloride 114 H Carbon Dioxide 23.2 Anion Gap 13 BUN 28 H Creatinine 0.73 Estimated GFR Greater than 89 POC Glucose Random Glucose 75 Calcium 8.2 L Magnesium 2.2 Total Bilirubin 1.4 H AST 33 ALT 18 Alkaline Phosphatase 101 Total Protein 7.2 Albumin 2.1 L 11/04/17 08:25 WBC RBC Hgb Hct MCV MCH MCHC RDW Plt Count MPV Neut % (Auto) Lymph % (Auto) [place] % (Auto) Eos % (Auto) Baso % (Auto) Neut # (Auto) Lymph # (Auto) [place] # (Auto) Eos # (Auto) Baso # (Auto) WBC Differential Differential Comment Puncture Site Patient Temperature O2 Saturation ABG pH ABG pCO2 ABG pO2 ABG HCO3 ABG O2 Content ABG Base Excess ABG Methemoglobin Leonard Test Hemoglobin Carboxyhemoglobin O2 Delivery Device Vent Setting Inspired O2 Critical Value Sodium Potassium Chloride Carbon Dioxide Anion Gap BUN Creatinine Estimated GFR POC Glucose 90 Random Glucose Calcium Magnesium Total Bilirubin AST ALT Alkaline Phosphatase Total Protein Albumin - Imaging Impressions Chest X-Ray 11/04/17 06:00 CONCLUSION: No significant interval change in bilateral lower lung zone predominant opacity. <Tammi Bush - Last Filed: 11/04/17 15:09> - Labs CBC & Chem 7: 11/04/17 03:01 11/04/17 03:01 Laboratory Results - last 24 hr 11/03/17 11/03/17 11/04/17 18:18 21:10 03:01 WBC 15.7 H RBC 3.47 L Hgb 10.4 L D Hct 32.4 L MCV 93.3 D MCH 30.0 MCHC 32.1 RDW 14.9 Plt Count 109 L D MPV 10.4 Neut % (Auto) 82.1 H Lymph % (Auto) 10.2 [place] % (Auto) 6.0 Eos % (Auto) 1.6 Baso % (Auto) 0.1 Neut # (Auto) 12.9 H Lymph # (Auto) 1.6 [place] # (Auto) 1.0 H Eos # (Auto) 0.3 Baso # (Auto) 0.0 WBC Differential . Differential Comment Auto diff final Puncture Site Patient Temperature O2 Saturation ABG pH ABG pCO2 ABG pO2 ABG HCO3 ABG O2 Content ABG Base Excess ABG Methemoglobin Leonard Test Hemoglobin Carboxyhemoglobin O2 Delivery Device Vent Setting Inspired O2 Critical Value Sodium Potassium Chloride Carbon Dioxide Anion Gap BUN Creatinine Estimated GFR POC Glucose 103 90 Random Glucose Calcium Magnesium Total Bilirubin AST ALT Alkaline Phosphatase Total Protein Albumin 11/04/17 11/04/17 11/04/17 03:01 03:01 06:12 WBC RBC Hgb Hct MCV MCH MCHC RDW Plt Count MPV Neut % (Auto) Lymph % (Auto) [place] % (Auto) Eos % (Auto) Baso % (Auto) Neut # (Auto) Lymph # (Auto) [place] # (Auto) Eos # (Auto) Baso # (Auto) WBC Differential Differential Comment Puncture Site Right radial Patient Temperature 98.6 O2 Saturation 95 ABG pH 7.45 H ABG pCO2 35 L ABG pO2 81 ABG HCO3 23 ABG O2 Content 19.9 ABG Base Excess -0.2 ABG Methemoglobin 0.9 Leonard Test Present Hemoglobin 15.0 Carboxyhemoglobin 1.0 O2 Delivery Device Ventilator Vent Setting See comments Inspired O2 50 Critical Value No Sodium 150 H Potassium 3.7 Chloride 114 H Carbon Dioxide 23.2 Anion Gap 13 BUN 28 H Creatinine 0.73 Estimated GFR Greater than 89 POC Glucose Random Glucose 75 Calcium 8.2 L Magnesium 2.2 Total Bilirubin 1.4 H AST 33 ALT 18 Alkaline Phosphatase 101 Total Protein 7.2 Albumin 2.1 L 11/04/17 08:25 WBC RBC Hgb Hct MCV MCH MCHC RDW Plt Count MPV Neut % (Auto) Lymph % (Auto) [place] % (Auto) Eos % (Auto) Baso % (Auto) Neut # (Auto) Lymph # (Auto) [place] # (Auto) Eos # (Auto) Baso # (Auto) WBC Differential Differential Comment Puncture Site Patient Temperature O2 Saturation ABG pH ABG pCO2 ABG pO2 ABG HCO3 ABG O2 Content ABG Base Excess ABG Methemoglobin Leonard Test Hemoglobin Carboxyhemoglobin O2 Delivery Device Vent Setting Inspired O2 Critical Value Sodium Potassium Chloride Carbon Dioxide Anion Gap BUN Creatinine Estimated GFR POC Glucose 90 Random Glucose Calcium Magnesium Total Bilirubin AST ALT Alkaline Phosphatase Total Protein Albumin - Imaging Impressions Chest X-Ray 11/04/17 06:00 CONCLUSION: No significant interval change in bilateral lower lung zone predominant opacity. <Sae Zhu - Last Filed: 11/04/17 17:57> Assessment and Plan - Plan 67-year-old male status post PEG tube placement on 11/03/2017. Patient remains in the intensive care unit currently on ventilator management. Gastroenterology was consulted for long-term nutritional support. Currently patient is nonresponsive G-tube is clean dry and intact with dressing. Will start tube feeds today and monitor for any high residuals. There is currently no family available. Moderate gastritis was noted otherwise no complications. GI will sign off but available if patient has any issues or reconsult as needed. Hemoglobin 10.4 mild decrease noted, no obvious bleeding. Tube feedings Jevity 1.5 initiated today at trickle feeds and monitor for any high residuals, protein supplement 3 times a day noted. Appreciate nutritional consult and support. Plan Diet start tube feeds Jevity 1.5 at 10 cc an hour and evaluate per nutritional consult for goal feedings Flush PEG tube every 6 hours with water and after each PEG feeding Change pegs site dressing and monitor for any erythema or acute bleedig Supportive care Monitor labs and hemoglobin Patient was seen per myself and Dr. Zhu, note was written on his behalf <Tammi Bush - Last Filed: 11/04/17 15:09> - Plan Seen and examined with JAIL KEEPER, s/p peg. Tolerating TF, advance rate as tolerated to meet goals. GI will sign off. thank you <Sae Zhu - Last Filed: 11/04/17 17:57>
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
[2017-11-04] MEDS: Beneprotein Powder Packet G-TUBE SCH (18:21)
--- NOTE | 2017-11-04 18:22 | ECG ---
Date Performed: 11/04/2017 Time Performed: 04:06:32 PTAGE: 67 years EKG: Sinus rhythm with multifocal PVCs. Lateral T wave changes are nonspecific Since the previous tracing, no signific ant change noted Abnormal ECG PREVIOUS TRACING : 10/28/2017 16.12 DOCTOR: Saulo Dixon Interpretating Date/Time 11/04/2017 18:19:50
[2017-11-05] MEDS: Propofol 1000 mg/100 ml Inj 1,000 MG/100 ML BOTTLE IV.CONT PRN ×4 (03:07→22:19)
[2017-11-05] MEDS: Oral Hygiene Kit OROPHARYNG SCH ×4 (03:08→23:05)
[2017-11-05 05:34] LABS: Baso % (Auto) 0.2 % (0.0-2.0); Eos # (Auto) 0.2 th/mm3 (0.0-0.4); Eos % (Auto) 1.5 % (0.0-4.0); Hematocrit 29.9 % (39.0-51.0); Hemoglobin 9.9 gm/dL (13.0-17.0); Lymph # (Auto) 1.3 th/mm3 (1.0-4.8); Lymph % (Auto) 10.5 % (9.0-44.0); Mean Corpuscular HGB Conc 33.1 % (32.0-36.0); Mean Corpuscular Hemoglobin 29.7 pg (27.0-34.0); Mean Corpuscular Volume 89.7 fL (80.0-100.0); Mono # (Auto) 1.1 th/mm3 (0.0-0.9); Mono % (Auto) 8.8 % (0.0-8.0); Neut # (Auto) 9.6 th/mm3 (1.8-7.7); Platelet Count 204 th/mm3 (150-450); Red Blood Count 3.33 mil/mm3 (4.50-5.90); Red Cell Distribution Width 14.7 % (11.6-17.2); White Blood Count 12.2 th/mm3 (4.0-11.0)
[2017-11-05 05:53] LABS: ABG Base Excess 0.2 mmol/L (-2-2); ABG PCO2 33 mmHg (38-42); ABG PO2 88 mmHg (61-120)
[2017-11-05 05:55] LABS: Alanine Aminotransferase 21 U/L (12-78); Albumin 1.8 g/dL (3.4-5.0); Anion Gap 10 meq/L (5-15); Aspartate Aminotransferase 57 U/L (15-37); Blood Urea Nitrogen 25 mg/dL (7-18); Calcium 7.8 mg/dL (8.5-10.1); Carbon Dioxide 24.2 meq/L (21.0-32.0); Chloride 115 meq/L (98-107); Glomerular Filtration Rate Greater Than 89 mL/min (>89); Glucose,Random 100 mg/dL (74-106); Potassium 3.1 meq/L (3.5-5.1); Sodium 149 meq/L (136-145)
[2017-11-05 05:57] LABS: Alkaline Phosphatase 129 U/L (45-117); Total Protein 6.9 g/dL (6.4-8.2)
--- NOTE | 2017-11-05 05:59 | XR ---
EXAM DATE: 11/05/2017 6:00 AM EDT AGE/SEX: 67 years / Male INDICATIONS: Shortness of breath. CLINICAL DATA: This is the patient's subsequent encounter. Patient reports that signs and symptoms h ave been present for 1 week and indicates a pain score of Nonresponsive. MEDICAL/SURGICAL HISTORY: . Left pneumothorax. . Chest tube, left. COMPARISON: [facility] [place], CHEST 1V SINGLE AP, 11/04/2017. . FINDINGS: Single AP view the chest. Endotracheal tube remains in place. Persistent bilateral pulmonary parenchy mal opacity at the lung bases unchanged. No evidence of pleural effusion or pneumothorax. Cardiomedia stinal silhouette is unchanged. CONCLUSION: No significant interval change in bilateral lower lung consolidation. Electronically signed by: Capo Ballesteros MD 11/05/2017 5:58 AM EDT
[2017-11-05] MEDS: Potassium Chlor 20 mEq Premix 20 MEQ/100 ML PIGGYBACK IV.SIG PRN ×4 (06:31→14:27)
[2017-11-05] MEDS: Sod Chloride 0.9% Inj 1,000 ML IV.CONT SCH (06:36)
[2017-11-05] MEDS: Chlorhexidine 0.12% Oral Kit 15 ML UDC OROPHARYNG SCH ×2 (07:09→20:08)
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
[2017-11-05] MEDS: Pantoprazole Inj 40 MG Vial IV.PUSH SCH (08:58)
[2017-11-05] MEDS: Enoxaparin Inj 40 MG/0.4 ML Syringe SQ SCH (08:59)
[2017-11-05] MEDS: Beneprotein Powder Packet G-TUBE SCH ×3 (08:59→17:00)
[2017-11-05] MEDS: Famotidine 20 MG Tablet PO SCH ×2 (08:59→20:08)
[2017-11-05] MEDS: Senna/Docusate Sodium 8.6/50 MG Tablet PO SCH ×2 (09:01→20:08)
[2017-11-05] MEDS ORDERED: Vancomycin Consult Pharmacy OTHER PRN (09:36)
[2017-11-05] MEDS ORDERED: Vancomycin Inj 2,000 MG in Sodium Chlor 0.9% Inj 500 ML IV.SIG ONE (12:00)
[2017-11-05] MEDS: Piperacil/Tazo 4.5 GM Premix 4.5 GM/100 ML BAG IV.SIG SCH ×2 (12:20→19:55)
[2017-11-05] MEDS: Enoxaparin Inj 30 MG/0.3 ML Syringe SQ SCH ×2 (12:20→20:08)
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
[2017-11-05 16:18] LABS: Bacteria,Urine Few /hpf; Bilirubin,Urine Negative (Negative); Clarity,Urine Clear (Clear); Color,Urine Yellow (Yellw/Straw); Glucose,Urine (UA) Negative (Negative); Leukocyte Esterase,Urine Small (Negative); Mucus,Urine Few /lpf (Occasional); Nitrite,Urine Negative (Negative); Specific Gravity,Urine 1.033 (1.002-1.035)
[2017-11-05] MEDS: Vancomycin Inj 1,750 MG in Sodium Chlor 0.9% Inj 500 ML IV.SIG SCH (22:19)
[2017-11-06] MEDS: Propofol 1000 mg/100 ml Inj 1,000 MG/100 ML BOTTLE IV.CONT PRN ×5 (02:45→22:54)
[2017-11-06] MEDS: Oral Hygiene Kit OROPHARYNG SCH ×3 (03:22→17:31)
[2017-11-06] MEDS: Piperacil/Tazo 4.5 GM Premix 4.5 GM/100 ML BAG IV.SIG SCH ×3 (03:22→22:02)
[2017-11-06 05:45] LABS: ABG Base Excess 0.2 mmol/L (-2-2); ABG PCO2 34 mmHg (38-42); ABG PO2 90 mmHg (61-120)
--- NOTE | 2017-11-06 05:47 | XR ---
EXAM DATE: 11/06/2017 6:00 AM EDT AGE/SEX: 67 years / Male INDICATIONS: Shortness of breath. CLINICAL DATA: This is the patient's subsequent encounter. Patient reports that signs and symptoms h ave been present for 1 week and indicates a pain score of Nonresponsive. MEDICAL/SURGICAL HISTORY: . Left pneumothorax. . Chest tube, left. [place] [facility] [place]. . FINDINGS: Single AP view the chest. Endotracheal tube remains in place. Persistent patchy bilateral lower lung zone pulmonary parenchymal opacity. Slight increase in apparent size of left pleural effusion. May be positional. No evidence of pneumothorax. Cardiomediastinal silhouette unchanged. CONCLUSION: 1. Possible increase in size of left pleural effusion. 2. No change in bilateral lower lung zone parenchymal opacity. Electronically signed by: Capo Ballesteros MD 11/06/2017 5:45 AM EDT
[2017-11-06 06:29] LABS: Baso % (Auto) 0.2 % (0.0-2.0); Eos # (Auto) 0.4 th/mm3 (0.0-0.4); Eos % (Auto) 4.6 % (0.0-4.0); Hematocrit 31.1 % (39.0-51.0); Hemoglobin 10.3 gm/dL (13.0-17.0); Lymph % (Auto) 10.2 % (9.0-44.0); Mean Platelet Volume 9.9 fL (7.0-11.0); Mono # (Auto) 0.9 th/mm3 (0.0-0.9); Mono % (Auto) 9.6 % (0.0-8.0); Neut # (Auto) 7.2 th/mm3 (1.8-7.7); Neut % (Auto) 75.4 % (16.0-70.0); Platelet Count 211 th/mm3 (150-450); Red Blood Count 3.41 mil/mm3 (4.50-5.90); Red Cell Distribution Width 14.4 % (11.6-17.2); White Blood Count 9.5 th/mm3 (4.0-11.0)
[2017-11-06 06:35] LABS: Alanine Aminotransferase 103 U/L (12-78); Albumin 1.7 g/dL (3.4-5.0); Alkaline Phosphatase 176 U/L (45-117); Anion Gap 9 meq/L (5-15); Aspartate Aminotransferase 310 U/L (15-37); Blood Urea Nitrogen 24 mg/dL (7-18); Calcium 7.9 mg/dL (8.5-10.1); Carbon Dioxide 22.9 meq/L (21.0-32.0); Chloride 115 meq/L (98-107); Glomerular Filtration Rate Greater Than 89 mL/min (>89); Glucose,Random 119 mg/dL (74-106); Potassium 3.4 meq/L (3.5-5.1); Sodium 147 meq/L (136-145); Total Protein 6.6 g/dL (6.4-8.2)
[2017-11-06] MEDS: Sod Chloride 0.9% Inj 1,000 ML IV.CONT SCH ×2 (06:45→13:01)
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
[2017-11-06] MEDS: Chlorhexidine 0.12% Oral Kit 15 ML UDC OROPHARYNG SCH ×2 (08:31→22:03)
[2017-11-06] MEDS ORDERED: Sod Chloride 0.9% Inj 1,000 ML IV.SIG SCH (09:45)
[2017-11-06] MEDS: Beneprotein Powder Packet G-TUBE SCH ×3 (10:00→17:31)
[2017-11-06] MEDS: Enoxaparin Inj 30 MG/0.3 ML Syringe SQ SCH ×2 (10:00→22:02)
[2017-11-06] MEDS: Pantoprazole Inj 40 MG Vial IV.PUSH SCH (10:01)
[2017-11-06] MEDS: Senna/Docusate Sodium 8.6/50 MG Tablet PO SCH ×2 (10:01→22:01)
[2017-11-06] MEDS: Famotidine 20 MG Tablet PO SCH ×2 (10:01→22:02)
[2017-11-06] MEDS: Vancomycin Inj 1,750 MG in Sodium Chlor 0.9% Inj 500 ML IV.SIG SCH ×2 (10:03→22:54)
[2017-11-06] MEDS: Potassium Chloride 25 MEQ Effervescent Tablet PO PRN (10:32)
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
[2017-11-07] MEDS: Oral Hygiene Kit OROPHARYNG SCH ×4 (00:55→16:06)
[2017-11-07] MEDS: Piperacil/Tazo 4.5 GM Premix 4.5 GM/100 ML BAG IV.SIG SCH ×3 (04:31→21:23)
[2017-11-07] MEDS: Propofol 1000 mg/100 ml Inj 1,000 MG/100 ML BOTTLE IV.CONT PRN ×4 (05:15→21:23)
[2017-11-07 06:12] LABS: ABG Base Excess 1.1 mmol/L (-2-2); ABG PCO2 33 mmHg (38-42); ABG PO2 99 mmHg (61-120)
[2017-11-07] MEDS: Sod Chloride 0.9% Inj 1,000 ML IV.CONT SCH (06:24)
[2017-11-07 07:58] LABS: Baso % (Auto) 0.3 % (0.0-2.0); Eos # (Auto) 0.3 th/mm3 (0.0-0.4); Eos % (Auto) 3.4 % (0.0-4.0); Hematocrit 31.8 % (39.0-51.0); Hemoglobin 10.4 gm/dL (13.0-17.0); Lymph # (Auto) 1.1 th/mm3 (1.0-4.8); Lymph % (Auto) 10.7 % (9.0-44.0); Mean Corpuscular HGB Conc 32.9 % (32.0-36.0); Mean Corpuscular Hemoglobin 29.7 pg (27.0-34.0); Mean Corpuscular Volume 90.2 fL (80.0-100.0); Mean Platelet Volume 10.2 fL (7.0-11.0); Mono # (Auto) 0.8 th/mm3 (0.0-0.9); Mono % (Auto) 7.8 % (0.0-8.0); Neut # (Auto) 7.7 th/mm3 (1.8-7.7); Neut % (Auto) 77.8 % (16.0-70.0); Platelet Count 186 th/mm3 (150-450); Red Blood Count 3.52 mil/mm3 (4.50-5.90); Red Cell Distribution Width 14.4 % (11.6-17.2); White Blood Count 9.9 th/mm3 (4.0-11.0)
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
[2017-11-07 08:14] LABS: Albumin 1.5 g/dL (3.4-5.0)
[2017-11-07] MEDS: Enoxaparin Inj 30 MG/0.3 ML Syringe SQ SCH ×2 (08:15→21:24)
[2017-11-07] MEDS: Pantoprazole Inj 40 MG Vial IV.PUSH SCH (08:15)
[2017-11-07 08:16] LABS: Total Protein 6.2 g/dL (6.4-8.2)
[2017-11-07] MEDS: Senna/Docusate Sodium 8.6/50 MG Tablet PO SCH ×2 (08:16→21:24)
[2017-11-07] MEDS: Beneprotein Powder Packet G-TUBE SCH ×3 (08:16→17:48)
[2017-11-07] MEDS: Famotidine 20 MG Tablet PO SCH ×2 (08:16→21:24)
[2017-11-07] MEDS: Chlorhexidine 0.12% Oral Kit 15 ML UDC OROPHARYNG SCH ×2 (08:17→21:24)
[2017-11-07 08:40] LABS: Eosinophils 4 % (0-4); Lymphocytes 17 % (9-44); Metamyelocytes 1 % (0-1); Monocytes 6 % (0-8); Myelocytes 2 % (0-0); Platelet Estimate Normal (Normal); Toxic Granulation 1+
[2017-11-07] MEDS ORDERED: Pharmacy Ordered Lab Info OTHER ONE (09:45)
[2017-11-07] MEDS: Vancomycin Inj 1,750 MG in Sodium Chlor 0.9% Inj 500 ML IV.SIG SCH ×2 (09:59→23:09)
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
[2017-11-07 10:39] LABS: Albumin 1.6 g/dL (3.4-5.0); Anion Gap 9 meq/L (5-15); Blood Urea Nitrogen 15 mg/dL (7-18); Calcium 7.5 mg/dL (8.5-10.1); Carbon Dioxide 22.9 meq/L (21.0-32.0); Chloride 112 meq/L (98-107); Glomerular Filtration Rate Greater Than 89 mL/min (>89); Glucose,Random 129 mg/dL (74-106); Potassium 3.2 meq/L (3.5-5.1); Sodium 144 meq/L (136-145)
[2017-11-07 10:41] LABS: Alanine Aminotransferase 122 U/L (12-78); Aspartate Aminotransferase 212 U/L (15-37)
[2017-11-07 10:44] LABS: Alkaline Phosphatase 198 U/L (45-117); Total Protein 5.9 g/dL (6.4-8.2); Vancomycin,Trough 17.1 mcg/mL (5.0-10.0)
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
--- NOTE | 2017-11-07 13:48 | P.PCN ---
Procedure: Diagnosis: Hypoxemic respiratory failure Procedure: Therapeutic flexible bronchoscopy Narrative: Timeout performed, patient suitably identified. Patient located in the intensive care unit on chemical ventilation through orotracheal intubation. Usual ICU monitoring devices are 100% oxygen and ventilator rate 18 /min. Through a side-port in the ventilator circuit the flexible bronchoscope was delivered in the tracheobronchial tree. The immediate main trachea and mainstem bronchi were clean and normal. Mucosa not inflamed. Distal bronchi had occasional inspissated secretions of white thick sputum but for the most part were clean. All were suctioned and inspected. Branching anatomy was normal. The bronchoscope and endotracheal tube were then withdrawn to the level of the cricoid cartilage such that mechanical ventilation could be continued but visualization was then provided for the insertion of a percutaneous tracheostomy. Following insertion of the new trach tube the scope was delivered down the new trach tube to the main trachea to confirm good position in the main trachea located suitably above the bifurcation. There was no bleeding. The inner cannula was then placed mechanical ventilation was immediately restarted. Pulse oximetry was maintained at greater than 95% throughout the procedure.
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
[2017-11-07] MEDS: Potassium Chloride 25 MEQ Effervescent Tablet PO PRN (16:17)
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
[2017-11-07] MEDS: Potassium Chlor 20 mEq Premix 20 MEQ/100 ML PIGGYBACK IV.SIG PRN (17:05)
[2017-11-08] MEDS: Propofol 1000 mg/100 ml Inj 1,000 MG/100 ML BOTTLE IV.CONT PRN (03:22)
[2017-11-08] MEDS: Sod Chloride 0.9% Inj 1,000 ML IV.CONT SCH (03:23)
[2017-11-08] MEDS: Piperacil/Tazo 4.5 GM Premix 4.5 GM/100 ML BAG IV.SIG SCH ×3 (03:23→21:03)
[2017-11-08] MEDS: Oral Hygiene Kit OROPHARYNG SCH ×4 (03:23→15:55)
[2017-11-08 04:48] LABS: Baso # (Auto) 0.1 th/mm3 (0.0-0.2); Baso % (Auto) 0.5 % (0.0-2.0); Eos # (Auto) 0.4 th/mm3 (0.0-0.4); Eos % (Auto) 2.7 % (0.0-4.0); Hematocrit 30.8 % (39.0-51.0); Hemoglobin 10.1 gm/dL (13.0-17.0); Lymph # (Auto) 1.3 th/mm3 (1.0-4.8); Lymph % (Auto) 9.4 % (9.0-44.0); Mean Corpuscular HGB Conc 32.8 % (32.0-36.0); Mean Corpuscular Hemoglobin 29.7 pg (27.0-34.0); Mean Corpuscular Volume 90.5 fL (80.0-100.0); Mean Platelet Volume 10.7 fL (7.0-11.0); Mono # (Auto) 0.9 th/mm3 (0.0-0.9); Mono % (Auto) 6.5 % (0.0-8.0); Neut # (Auto) 10.9 th/mm3 (1.8-7.7); Neut % (Auto) 80.9 % (16.0-70.0); Platelet Count 239 th/mm3 (150-450); Red Blood Count 3.41 mil/mm3 (4.50-5.90); Red Cell Distribution Width 14.2 % (11.6-17.2); White Blood Count 13.4 th/mm3 (4.0-11.0)
[2017-11-08 05:04] LABS: Anion Gap 11 meq/L (5-15); Blood Urea Nitrogen 14 mg/dL (7-18); Calcium 7.7 mg/dL (8.5-10.1); Carbon Dioxide 25.4 meq/L (21.0-32.0); Chloride 110 meq/L (98-107); Glomerular Filtration Rate Greater Than 89 mL/min (>89); Glucose,Random 137 mg/dL (74-106); Potassium 3.8 meq/L (3.5-5.1); Sodium 146 meq/L (136-145)
[2017-11-08] MEDS: Famotidine 20 MG Tablet PO SCH ×2 (08:16→21:03)
[2017-11-08] MEDS: Chlorhexidine 0.12% Oral Kit 15 ML UDC OROPHARYNG SCH ×2 (08:16→21:03)
[2017-11-08] MEDS: Senna/Docusate Sodium 8.6/50 MG Tablet PO SCH ×2 (08:16→21:04)
[2017-11-08] MEDS: Beneprotein Powder Packet G-TUBE SCH ×3 (08:16→17:18)
[2017-11-08] MEDS: Enoxaparin Inj 30 MG/0.3 ML Syringe SQ SCH ×2 (08:16→21:03)
[2017-11-08 08:19] LABS: Eosinophils 6 % (0-4); Lymphocytes 14 % (9-44); Metamyelocytes 3 % (0-1); Monocytes 6 % (0-8)
[2017-11-08 08:20] LABS: Platelet Estimate Normal (Normal); RBC Morphology Normal (Normal)
[2017-11-08] MEDS: Vancomycin Inj 1,750 MG in Sodium Chlor 0.9% Inj 500 ML IV.SIG SCH ×2 (09:09→22:38)
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
[2017-11-09] MEDS: Oral Hygiene Kit OROPHARYNG SCH ×4 (00:56→15:51)
[2017-11-09 04:10] LABS: Baso % (Auto) 0.3 % (0.0-2.0); Eos # (Auto) 0.3 th/mm3 (0.0-0.4); Eos % (Auto) 2.4 % (0.0-4.0); Hematocrit 31.9 % (39.0-51.0); Hemoglobin 10.2 gm/dL (13.0-17.0); Lymph # (Auto) 1.8 th/mm3 (1.0-4.8); Lymph % (Auto) 13.1 % (9.0-44.0); Mean Corpuscular HGB Conc 31.9 % (32.0-36.0); Mean Corpuscular Volume 90.7 fL (80.0-100.0); Mean Platelet Volume 10.4 fL (7.0-11.0); Mono % (Auto) 7.5 % (0.0-8.0); Neut # (Auto) 10.3 th/mm3 (1.8-7.7); Neut % (Auto) 76.7 % (16.0-70.0); Platelet Count 307 th/mm3 (150-450); Red Blood Count 3.52 mil/mm3 (4.50-5.90); Red Cell Distribution Width 14.8 % (11.6-17.2); White Blood Count 13.4 th/mm3 (4.0-11.0)
[2017-11-09 04:45] LABS: Eosinophils 4 % (0-4); Lymphocytes 16 % (9-44); Metamyelocytes 2 % (0-1); Monocytes 7 % (0-8)
[2017-11-09 04:46] LABS: Platelet Estimate Normal (Normal)
[2017-11-09] MEDS: Piperacil/Tazo 4.5 GM Premix 4.5 GM/100 ML BAG IV.SIG SCH ×3 (05:30→20:09)
[2017-11-09 06:32] LABS: ABG Base Excess 4.4 mmol/L (-2-2); ABG PCO2 35 mmHg (38-42); ABG PO2 90 mmHg (61-120)
[2017-11-09 06:36] LABS: Anion Gap 12 meq/L (5-15); Blood Urea Nitrogen 16 mg/dL (7-18); Calcium 7.5 mg/dL (8.5-10.1); Carbon Dioxide 26.3 meq/L (21.0-32.0); Chloride 106 meq/L (98-107); Glomerular Filtration Rate Greater Than 89 mL/min (>89); Glucose,Random 145 mg/dL (74-106); Potassium 3.1 meq/L (3.5-5.1); Sodium 144 meq/L (136-145)
[2017-11-09] MEDS: Beneprotein Powder Packet G-TUBE SCH ×3 (09:32→17:02)
[2017-11-09] MEDS: Chlorhexidine 0.12% Oral Kit 15 ML UDC OROPHARYNG SCH ×2 (09:32→20:09)
[2017-11-09] MEDS: Enoxaparin Inj 30 MG/0.3 ML Syringe SQ SCH ×2 (09:33→20:09)
[2017-11-09] MEDS: Famotidine 20 MG Tablet PO SCH ×2 (09:33→20:09)
[2017-11-09] MEDS: Senna/Docusate Sodium 8.6/50 MG Tablet PO SCH ×2 (09:33→20:10)
[2017-11-09] MEDS: Potassium Chlor 20 mEq Premix 20 MEQ/100 ML PIGGYBACK IV.SIG PRN ×4 (09:35→15:39)
[2017-11-09] MEDS: Vancomycin Inj 1,750 MG in Sodium Chlor 0.9% Inj 500 ML IV.SIG SCH (09:35)
[2017-11-09] MEDS ORDERED: acetaZOLAMIDE Inj 250 MG in Sodium Chlor 0.9% Inj 50 ML IV.SIG ONE (09:42)
[2017-11-09] MEDS ORDERED: Pharmacy Ordered Lab Info OTHER ONE (09:45)
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
[2017-11-09 11:36] LABS: Albumin 1.7 g/dL (3.4-5.0); Anion Gap 9 meq/L (5-15); Blood Urea Nitrogen 17 mg/dL (7-18); Calcium 8.1 mg/dL (8.5-10.1); Carbon Dioxide 27.7 meq/L (21.0-32.0); Chloride 105 meq/L (98-107); Glomerular Filtration Rate Greater Than 89 mL/min (>89); Glucose,Random 129 mg/dL (74-106); Magnesium 2.1 mg/dL (1.5-2.5); Potassium 3.1 meq/L (3.5-5.1); Sodium 142 meq/L (136-145)
[2017-11-09 11:37] LABS: Alanine Aminotransferase 103 U/L (12-78); Aspartate Aminotransferase 116 U/L (15-37)
[2017-11-09 11:39] LABS: Alkaline Phosphatase 225 U/L (45-117); Total Protein 6.9 g/dL (6.4-8.2); Vancomycin,Trough 20.8 mcg/mL (5.0-10.0)
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
[2017-11-10] MEDS: Piperacil/Tazo 4.5 GM Premix 4.5 GM/100 ML BAG IV.SIG SCH ×2 (03:38→12:37)
[2017-11-10] MEDS: Oral Hygiene Kit OROPHARYNG SCH ×5 (03:39→23:50)
[2017-11-10 04:14] LABS: Baso % (Auto) 0.3 % (0.0-2.0); Eos # (Auto) 0.3 th/mm3 (0.0-0.4); Eos % (Auto) 1.9 % (0.0-4.0); Hematocrit 33.3 % (39.0-51.0); Hemoglobin 10.6 gm/dL (13.0-17.0); Lymph # (Auto) 1.3 th/mm3 (1.0-4.8); Lymph % (Auto) 7.5 % (9.0-44.0); Mean Corpuscular HGB Conc 31.9 % (32.0-36.0); Mean Corpuscular Hemoglobin 28.7 pg (27.0-34.0); Mean Corpuscular Volume 89.9 fL (80.0-100.0); Mean Platelet Volume 10.3 fL (7.0-11.0); Mono # (Auto) 1.1 th/mm3 (0.0-0.9); Mono % (Auto) 6.6 % (0.0-8.0); Neut # (Auto) 14.6 th/mm3 (1.8-7.7); Neut % (Auto) 83.7 % (16.0-70.0); Platelet Count 360 th/mm3 (150-450); Red Cell Distribution Width 14.2 % (11.6-17.2); White Blood Count 17.4 th/mm3 (4.0-11.0)
[2017-11-10 04:34] LABS: Albumin 1.8 g/dL (3.4-5.0); Anion Gap 11 meq/L (5-15); Aspartate Aminotransferase 113 U/L (15-37); Blood Urea Nitrogen 17 mg/dL (7-18); Calcium 8.2 mg/dL (8.5-10.1); Carbon Dioxide 20.9 meq/L (21.0-32.0); Chloride 109 meq/L (98-107); Glomerular Filtration Rate Greater Than 89 mL/min (>89); Glucose,Random 144 mg/dL (74-106); Potassium 3.6 meq/L (3.5-5.1); Sodium 141 meq/L (136-145)
[2017-11-10 04:38] LABS: Alanine Aminotransferase 105 U/L (12-78); Alkaline Phosphatase 238 U/L (45-117); Total Protein 7.3 g/dL (6.4-8.2)
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
[2017-11-10] MEDS ORDERED: Vancomycin Inj 1,750 MG in Sodium Chlor 0.9% Inj 500 ML IV.SIG SCH (06:00)
[2017-11-10 06:02] LABS: ABG Base Excess -3.5 mmol/L (-2-2); ABG PCO2 25 mmHg (38-42); ABG PO2 129 mmHg (61-120)
[2017-11-10] MEDS: Chlorhexidine 0.12% Oral Kit 15 ML UDC OROPHARYNG SCH ×2 (08:00→20:16)
[2017-11-10] MEDS: Beneprotein Powder Packet G-TUBE SCH ×3 (09:00→17:39)
[2017-11-10] MEDS: Enoxaparin Inj 30 MG/0.3 ML Syringe SQ SCH ×2 (09:57→20:16)
[2017-11-10] MEDS: Senna/Docusate Sodium 8.6/50 MG Tablet PO SCH ×2 (09:58→20:16)
[2017-11-10] MEDS: Famotidine 20 MG Tablet PO SCH ×2 (09:58→20:16)
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
[2017-11-10] MEDS: metroNIDAZOLE 500 MG Tablet PO SCH ×2 (15:11→21:03)
--- NOTE | 2017-11-10 15:34 | P.PNPAL ---
Spoke with social work [facility] psychiatric social worker supervisor, Dilcia, regarding CODE STATUS and placement decisions for patient. She states that she needs to speak with the physician as goals do not appear to be clear, since prognosis is for no neurological recovery, yet patient underwent tracheostomy and PEG placement, questionably indicating aggressive goals. Contact information provided and communication sent to Dr. Stewart to contact the psychiatric social worker supervisor and provide the information she requires for further decision-making. Dilcia will contact me once that communication is complete to finalize decision making. .
[2017-11-11 04:23] LABS: Alanine Aminotransferase 87 U/L (12-78); Anion Gap 12 meq/L (5-15); Aspartate Aminotransferase 73 U/L (15-37); Blood Urea Nitrogen 18 mg/dL (7-18); Calcium 8.2 mg/dL (8.5-10.1); Carbon Dioxide 20.2 meq/L (21.0-32.0); Chloride 109 meq/L (98-107); Glomerular Filtration Rate Greater Than 89 mL/min (>89); Glucose,Random 126 mg/dL (74-106); Potassium 3.5 meq/L (3.5-5.1); Sodium 141 meq/L (136-145)
[2017-11-11 04:26] LABS: Alkaline Phosphatase 237 U/L (45-117); Total Protein 7.7 g/dL (6.4-8.2)
[2017-11-11 04:28] LABS: Baso % (Auto) 0.3 % (0.0-2.0); Eos # (Auto) 0.2 th/mm3 (0.0-0.4); Eos % (Auto) 1.4 % (0.0-4.0); Hematocrit 32.4 % (39.0-51.0); Hemoglobin 10.4 gm/dL (13.0-17.0); Lymph # (Auto) 1.8 th/mm3 (1.0-4.8); Lymph % (Auto) 12.4 % (9.0-44.0); Mean Corpuscular Hemoglobin 28.9 pg (27.0-34.0); Mean Corpuscular Volume 90.3 fL (80.0-100.0); Mean Platelet Volume 10.1 fL (7.0-11.0); Mono # (Auto) 1.2 th/mm3 (0.0-0.9); Mono % (Auto) 8.3 % (0.0-8.0); Neut # (Auto) 11.4 th/mm3 (1.8-7.7); Neut % (Auto) 77.6 % (16.0-70.0); Platelet Count 392 th/mm3 (150-450); Red Blood Count 3.59 mil/mm3 (4.50-5.90); Red Cell Distribution Width 14.4 % (11.6-17.2); White Blood Count 14.7 th/mm3 (4.0-11.0)
[2017-11-11] MEDS: metroNIDAZOLE 500 MG Tablet PO SCH ×3 (05:36→21:15)
[2017-11-11] MEDS: Oral Hygiene Kit OROPHARYNG SCH ×3 (05:36→17:02)
[2017-11-11 06:29] LABS: ABG Base Excess -2.2 mmol/L (-2-2); ABG PCO2 25 mmHg (38-42); ABG PO2 75 mmHg (61-120)
[2017-11-11 07:08] LABS: Eosinophils 1 % (0-4); Lymphocytes 12 % (9-44); Metamyelocytes 1 % (0-1); Monocytes 3 % (0-8); Myelocytes 1 % (0-0)
[2017-11-11 07:09] LABS: Platelet Estimate Normal (Normal); Platelet Morphology Normal (Normal); Toxic Granulation 1+
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
[2017-11-11] MEDS: Enoxaparin Inj 30 MG/0.3 ML Syringe SQ SCH ×2 (08:25→20:46)
[2017-11-11] MEDS: Potassium Chloride 25 MEQ Effervescent Tablet PO PRN (08:25)
[2017-11-11] MEDS: Beneprotein Powder Packet G-TUBE SCH ×3 (08:26→17:02)
[2017-11-11] MEDS: Famotidine 20 MG Tablet PO SCH ×2 (08:26→20:47)
[2017-11-11] MEDS: Chlorhexidine 0.12% Oral Kit 15 ML UDC OROPHARYNG SCH ×2 (08:26→20:47)
[2017-11-11] MEDS: Senna/Docusate Sodium 8.6/50 MG Tablet PO SCH ×2 (08:26→20:46)
[2017-11-11] MEDS: Amantadine Liq 100 MG/10 ML UDC PO SCH (12:44)
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
[2017-11-12] MEDS: Oral Hygiene Kit OROPHARYNG SCH ×4 (00:40→18:47)
[2017-11-12 05:09] LABS: Albumin 2.1 g/dL (3.4-5.0); Anion Gap 11 meq/L (5-15); Aspartate Aminotransferase 72 U/L (15-37); Blood Urea Nitrogen 22 mg/dL (7-18); Calcium 8.1 mg/dL (8.5-10.1); Carbon Dioxide 21.4 meq/L (21.0-32.0); Chloride 109 meq/L (98-107); Glomerular Filtration Rate Greater Than 89 mL/min (>89); Glucose,Random 143 mg/dL (74-106); Potassium 4.3 meq/L (3.5-5.1); Sodium 141 meq/L (136-145)
[2017-11-12 05:11] LABS: Alanine Aminotransferase 81 U/L (12-78); Alkaline Phosphatase 244 U/L (45-117); Total Protein 7.9 g/dL (6.4-8.2)
[2017-11-12] MEDS: metroNIDAZOLE 500 MG Tablet PO SCH ×3 (05:22→21:06)
[2017-11-12] MEDS ORDERED: Pharmacy Ordered Lab Info OTHER ONE (05:45)
[2017-11-12 06:21] LABS: ABG Base Excess -2.3 mmol/L (-2-2); ABG PCO2 27 mmHg (38-42); ABG PO2 69 mmHg (61-120)
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
[2017-11-12 08:22] LABS: Baso # (Auto) 0.1 th/mm3 (0.0-0.2); Baso % (Auto) 0.5 % (0.0-2.0); Eos # (Auto) 0.3 th/mm3 (0.0-0.4); Eos % (Auto) 1.7 % (0.0-4.0); Hematocrit 35.5 % (39.0-51.0); Hemoglobin 11.7 gm/dL (13.0-17.0); Lymph # (Auto) 1.9 th/mm3 (1.0-4.8); Lymph % (Auto) 10.3 % (9.0-44.0); Mean Corpuscular HGB Conc 32.9 % (32.0-36.0); Mean Corpuscular Hemoglobin 29.6 pg (27.0-34.0); Mean Corpuscular Volume 89.9 fL (80.0-100.0); Mean Platelet Volume 9.7 fL (7.0-11.0); Mono # (Auto) 1.5 th/mm3 (0.0-0.9); Mono % (Auto) 7.8 % (0.0-8.0); Neut # (Auto) 14.9 th/mm3 (1.8-7.7); Neut % (Auto) 79.7 % (16.0-70.0); Platelet Count 506 th/mm3 (150-450); Red Blood Count 3.95 mil/mm3 (4.50-5.90); Red Cell Distribution Width 14.8 % (11.6-17.2); White Blood Count 18.7 th/mm3 (4.0-11.0)
[2017-11-12] MEDS: Amantadine Liq 100 MG/10 ML UDC PO SCH ×2 (08:46→12:59)
[2017-11-12] MEDS: Chlorhexidine 0.12% Oral Kit 15 ML UDC OROPHARYNG SCH ×2 (08:46→20:55)
[2017-11-12] MEDS: Enoxaparin Inj 30 MG/0.3 ML Syringe SQ SCH ×2 (08:47→20:55)
[2017-11-12] MEDS: Famotidine 20 MG Tablet PO SCH ×2 (08:47→20:56)
[2017-11-12] MEDS: Beneprotein Powder Packet G-TUBE SCH ×3 (08:47→18:47)
[2017-11-12] MEDS: Senna/Docusate Sodium 8.6/50 MG Tablet PO SCH ×2 (08:47→20:56)
[2017-11-12 08:56] LABS: Eosinophils 2 % (0-4); Lymphocytes 17 % (9-44); Monocytes 7 % (0-8); Myelocytes 1 % (0-0); Toxic Granulation 1+
[2017-11-12 08:58] LABS: Platelet Morphology Normal (Normal)
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
[2017-11-13] MEDS: Oral Hygiene Kit OROPHARYNG SCH ×3 (04:15→17:01)
[2017-11-13] MEDS: metroNIDAZOLE 500 MG Tablet PO SCH ×3 (05:56→21:04)
[2017-11-13] MEDS: Amantadine Liq 100 MG/10 ML UDC PO SCH ×2 (06:07→13:05)
[2017-11-13 06:08] LABS: Baso # (Auto) 0.1 th/mm3 (0.0-0.2); Baso % (Auto) 0.8 % (0.0-2.0); Eos # (Auto) 0.3 th/mm3 (0.0-0.4); Eos % (Auto) 1.9 % (0.0-4.0); Hematocrit 32.6 % (39.0-51.0); Lymph # (Auto) 1.7 th/mm3 (1.0-4.8); Lymph % (Auto) 12.5 % (9.0-44.0); Mean Corpuscular HGB Conc 33.8 % (32.0-36.0); Mean Corpuscular Hemoglobin 29.9 pg (27.0-34.0); Mean Corpuscular Volume 88.4 fL (80.0-100.0); Mean Platelet Volume 8.8 fL (7.0-11.0); Mono # (Auto) 0.9 th/mm3 (0.0-0.9); Mono % (Auto) 6.8 % (0.0-8.0); Neut # (Auto) 10.7 th/mm3 (1.8-7.7); Platelet Count 480 th/mm3 (150-450); Red Blood Count 3.69 mil/mm3 (4.50-5.90); Red Cell Distribution Width 14.8 % (11.6-17.2); White Blood Count 13.7 th/mm3 (4.0-11.0)
[2017-11-13 06:36] LABS: Alanine Aminotransferase 63 U/L (12-78); Albumin 2.2 g/dL (3.4-5.0); Anion Gap 11 meq/L (5-15); Aspartate Aminotransferase 44 U/L (15-37); Blood Urea Nitrogen 24 mg/dL (7-18); Calcium 8.5 mg/dL (8.5-10.1); Carbon Dioxide 22.8 meq/L (21.0-32.0); Chloride 105 meq/L (98-107); Glomerular Filtration Rate Greater Than 89 mL/min (>89); Glucose,Random 138 mg/dL (74-106); Potassium 3.9 meq/L (3.5-5.1); Sodium 139 meq/L (136-145)
[2017-11-13 06:39] LABS: Alkaline Phosphatase 256 U/L (45-117); Total Protein 8.5 g/dL (6.4-8.2)
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
[2017-11-13] MEDS: Senna/Docusate Sodium 8.6/50 MG Tablet PO SCH ×2 (08:28→21:04)
[2017-11-13] MEDS: Beneprotein Powder Packet G-TUBE SCH ×3 (08:57→17:01)
[2017-11-13] MEDS: Chlorhexidine 0.12% Oral Kit 15 ML UDC OROPHARYNG SCH ×2 (08:57→21:03)
[2017-11-13] MEDS: Enoxaparin Inj 30 MG/0.3 ML Syringe SQ SCH ×2 (08:57→21:03)
[2017-11-13] MEDS: Famotidine 20 MG Tablet PO SCH ×2 (08:58→21:04)
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
[2017-11-14] MEDS: Oral Hygiene Kit OROPHARYNG SCH ×4 (00:49→17:36)
[2017-11-14] MEDS: metroNIDAZOLE 500 MG Tablet PO SCH ×3 (06:05→21:36)
[2017-11-14] MEDS: Amantadine Liq 100 MG/10 ML UDC PO SCH ×2 (06:05→13:12)
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
[2017-11-14] MEDS: Chlorhexidine 0.12% Oral Kit 15 ML UDC OROPHARYNG SCH ×2 (08:03→20:32)
[2017-11-14] MEDS: Beneprotein Powder Packet G-TUBE SCH ×3 (08:04→17:36)
[2017-11-14] MEDS: Senna/Docusate Sodium 8.6/50 MG Tablet PO SCH ×2 (08:04→20:32)
[2017-11-14] MEDS: levoFLOXacin 750 MG Tablet PO SCH (08:04)
[2017-11-14] MEDS: Famotidine 20 MG Tablet PO SCH ×2 (08:04→20:32)
[2017-11-14] MEDS: Enoxaparin Inj 30 MG/0.3 ML Syringe SQ SCH ×2 (08:04→20:32)
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
--- NOTE | 2017-11-14 09:18 | XR ---
EXAM DATE: 11/14/2017 12:00 AM EDT AGE/SEX: 67 years / Male INDICATIONS: Fever. CLINICAL DATA: This is the patient's subsequent encounter. Patient reports that signs and symptoms h ave been present for 4 - 6 days and indicates a pain score of 4/10. MEDICAL/SURGICAL HISTORY: . Left pneumothorax . Chest tube. [place] [facility] [place]. . FINDINGS: Trach tube in good position. Right lung is clear. Improvement on the left with less fluid and consolidation. The portion of the bony skeleton visualized is unremarkable. CONCLUSION: Improving with less fluid and consolidation on the left. Pleural effusion is probably now small. Electronically signed by: Lex Durbin MD 11/14/2017 9:16 AM EDT
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
[2017-11-15] MEDS: Oral Hygiene Kit OROPHARYNG SCH ×4 (00:30→17:33)
[2017-11-15 06:18] LABS: Anion Gap 13 meq/L (5-15); Blood Urea Nitrogen 24 mg/dL (7-18); Calcium 8.6 mg/dL (8.5-10.1); Carbon Dioxide 24.4 meq/L (21.0-32.0); Chloride 103 meq/L (98-107); Glomerular Filtration Rate Greater Than 89 mL/min (>89); Glucose,Random 118 mg/dL (74-106); Potassium 4.4 meq/L (3.5-5.1)
[2017-11-15 06:19] LABS: Sodium 140 meq/L (136-145)
[2017-11-15] MEDS: metroNIDAZOLE 500 MG Tablet PO SCH ×3 (06:24→21:17)
[2017-11-15] MEDS: Amantadine Liq 100 MG/10 ML UDC PO SCH (06:26)
[2017-11-15 08:37] LABS: Baso # (Auto) 0.1 th/mm3 (0.0-0.2); Baso % (Auto) 0.6 % (0.0-2.0); Eos # (Auto) 0.4 th/mm3 (0.0-0.4); Eos % (Auto) 2.9 % (0.0-4.0); Hematocrit 35.3 % (39.0-51.0); Hemoglobin 11.6 gm/dL (13.0-17.0); Lymph # (Auto) 2.3 th/mm3 (1.0-4.8); Lymph % (Auto) 19.1 % (9.0-44.0); Mean Corpuscular HGB Conc 32.9 % (32.0-36.0); Mean Corpuscular Hemoglobin 29.6 pg (27.0-34.0); Mean Corpuscular Volume 89.9 fL (80.0-100.0); Mean Platelet Volume 9.1 fL (7.0-11.0); Mono % (Auto) 8.4 % (0.0-8.0); Neut # (Auto) 8.4 th/mm3 (1.8-7.7); Platelet Count 498 th/mm3 (150-450); Red Blood Count 3.93 mil/mm3 (4.50-5.90); Red Cell Distribution Width 14.8 % (11.6-17.2); White Blood Count 12.2 th/mm3 (4.0-11.0)
[2017-11-15] MEDS: Enoxaparin Inj 30 MG/0.3 ML Syringe SQ SCH ×2 (09:04→20:24)
[2017-11-15] MEDS: Famotidine 20 MG Tablet PO SCH ×2 (09:04→20:24)
[2017-11-15] MEDS: levoFLOXacin 750 MG Tablet PO SCH (09:04)
[2017-11-15] MEDS: Senna/Docusate Sodium 8.6/50 MG Tablet PO SCH (09:04)
[2017-11-15] MEDS: Chlorhexidine 0.12% Oral Kit 15 ML UDC OROPHARYNG SCH ×2 (09:05→20:24)
[2017-11-15] MEDS: Beneprotein Powder Packet G-TUBE SCH ×3 (09:05→17:33)
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
[2017-11-16] MEDS: Oral Hygiene Kit OROPHARYNG SCH ×4 (02:29→16:15)
[2017-11-16] MEDS: metroNIDAZOLE 500 MG Tablet PO SCH ×3 (05:30→22:40)
[2017-11-16] MEDS: Famotidine 20 MG Tablet PO SCH ×2 (09:15→22:39)
[2017-11-16] MEDS: levoFLOXacin 750 MG Tablet PO SCH (09:15)
[2017-11-16] MEDS: Enoxaparin Inj 30 MG/0.3 ML Syringe SQ SCH ×2 (09:15→22:40)
[2017-11-16] MEDS: Beneprotein Powder Packet G-TUBE SCH ×3 (09:16→17:54)
[2017-11-16] MEDS: Chlorhexidine 0.12% Oral Kit 15 ML UDC OROPHARYNG SCH ×2 (09:16→22:39)
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
[2017-11-17] MEDS: Oral Hygiene Kit OROPHARYNG SCH ×4 (01:37→17:30)
[2017-11-17] MEDS: metroNIDAZOLE 500 MG Tablet PO SCH ×3 (06:21→21:26)
[2017-11-17] MEDS: levoFLOXacin 750 MG Tablet PO SCH (08:22)
[2017-11-17] MEDS: Enoxaparin Inj 30 MG/0.3 ML Syringe SQ SCH ×2 (08:22→20:25)
[2017-11-17] MEDS: Famotidine 20 MG Tablet PO SCH ×2 (08:23→20:25)
[2017-11-17] MEDS: Beneprotein Powder Packet G-TUBE SCH ×3 (08:23→17:30)
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
[2017-11-17] MEDS: Chlorhexidine 0.12% Oral Kit 15 ML UDC OROPHARYNG SCH ×2 (11:44→20:26)
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
[2017-11-18] MEDS: Oral Hygiene Kit OROPHARYNG SCH ×3 (02:39→14:51)
[2017-11-18] MEDS: metroNIDAZOLE 500 MG Tablet PO SCH ×2 (05:30→15:18)
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
[2017-11-18] MEDS: levoFLOXacin 750 MG Tablet PO SCH (09:43)
[2017-11-18] MEDS: Famotidine 20 MG Tablet PO SCH (09:43)
[2017-11-18] MEDS: Enoxaparin Inj 30 MG/0.3 ML Syringe SQ SCH (09:44)
[2017-11-18] MEDS: Chlorhexidine 0.12% Oral Kit 15 ML UDC OROPHARYNG SCH (09:44)
[2017-11-18] MEDS: Beneprotein Powder Packet G-TUBE SCH ×2 (09:45→14:50)
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
[2017-11-18 18:51] VITALS: BP 117/82; RESP 26; TEMP 97.9; O2SAT 97
[2017-11-18 18:52] VITALS: PULSE 95
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
== END 2017-11-18 18:00 ==
LOC: NEPI 10:27 → N03 11:22 → EDBD 11:22 → N03 11:41
PROVIDERS: ADMIT Surgery; ATTEND Surgery
PROC: PANENDO (2017-11-03 14:29)

== ENCOUNTER 2018-04-01 14:16 | Inpatient (IN) ==
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
[2018-04-01 15:07] VITALS: TEMP 98.6
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
[2018-04-01 16:53] LABS: Baso % (Auto) 0.3 % (0.0-2.0); Eos # (Auto) 0.2 th/mm3 (0.0-0.4); Eos % (Auto) 1.7 % (0.0-4.0); Hematocrit 49.4 % (39.0-51.0); Hemoglobin 16.3 gm/dL (13.0-17.0); Lymph # (Auto) 0.7 th/mm3 (1.0-4.8); Lymph % (Auto) 6.6 % (9.0-44.0); Mean Corpuscular Hemoglobin 29.7 pg (27.0-34.0); Mean Corpuscular Volume 90.1 fL (80.0-100.0); Mean Platelet Volume 9.3 fL (7.0-11.0); Mono # (Auto) 0.9 th/mm3 (0.0-0.9); Mono % (Auto) 8.5 % (0.0-8.0); Neut # (Auto) 9.3 th/mm3 (1.8-7.7); Neut % (Auto) 82.9 % (16.0-70.0); Platelet Count 188 th/mm3 (150-450); Red Blood Count 5.49 mil/mm3 (4.50-5.90); Red Cell Distribution Width 14.9 % (11.6-17.2); White Blood Count 11.2 th/mm3 (4.0-11.0)
[2018-04-01 18:14] LABS: Calcium 8.5 mg/dL (8.5-10.1); Carbon Dioxide 24.5 meq/L (21.0-32.0); Potassium 3.9 meq/L (3.5-5.1)
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
[2018-04-01] MEDS ORDERED: Morphine Sulfate Inj 2 MG/ML Vial IV.PUSH PRN (23:11)
[2018-04-01] MEDS ORDERED: Acetaminophen 325 MG Tablet PO PRN (23:11)
[2018-04-02] MEDS ORDERED: Pantoprazole Inj 40 MG Vial IV.PUSH SCH
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
[2018-04-02 06:09] LABS: Baso % (Auto) 0.6 % (0.0-2.0); Eos # (Auto) 0.6 th/mm3 (0.0-0.4); Eos % (Auto) 7.4 % (0.0-4.0); Hematocrit 41.6 % (39.0-51.0); Hemoglobin 13.8 gm/dL (13.0-17.0); Lymph # (Auto) 1.6 th/mm3 (1.0-4.8); Lymph % (Auto) 19.9 % (9.0-44.0); Mean Corpuscular HGB Conc 33.2 % (32.0-36.0); Mean Corpuscular Hemoglobin 30.1 pg (27.0-34.0); Mean Corpuscular Volume 90.5 fL (80.0-100.0); Mono % (Auto) 11.7 % (0.0-8.0); Neut % (Auto) 60.4 % (16.0-70.0); Platelet Count 198 th/mm3 (150-450); Red Cell Distribution Width 14.2 % (11.6-17.2); White Blood Count 8.2 th/mm3 (4.0-11.0)
[2018-04-02 06:39] LABS: Albumin 3.1 g/dL (3.4-5.0); Anion Gap 8 meq/L (5-15); Aspartate Aminotransferase 28 U/L (15-37); Blood Urea Nitrogen 23 mg/dL (7-18); Calcium 8.2 mg/dL (8.5-10.1); Carbon Dioxide 26.7 meq/L (21.0-32.0); Chloride 107 meq/L (98-107); Glomerular Filtration Rate 60 mL/min (>89); Glucose,Random 97 mg/dL (74-106); Potassium 3.3 meq/L (3.5-5.1); Sodium 142 meq/L (136-145)
[2018-04-02 06:40] LABS: Alanine Aminotransferase 11 U/L (12-78)
[2018-04-02 06:42] LABS: Alkaline Phosphatase 72 U/L (45-117); Total Protein 6.9 g/dL (6.4-8.2)
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
[2018-04-02] MEDS ORDERED: Senna/Docusate Sodium 8.6/50 MG Tablet PO SCH (09:00)
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
[2018-04-02] MEDS: Sod Chloride 0.9% Inj 1,000 ML IV.CONT SCH ×2 (09:16)
[2018-04-02 11:47] VITALS: BP 142/65; PULSE 75; RESP 17; O2SAT 100
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
== END 2018-04-02 14:16 | disposition home or self-care (01) | DRG 83 ==
LOC: NEPE 14:16 → NEDA 20:05 → NEDH 04-02 06:00
PROVIDERS: ADMIT Surgery; ATTEND Surgery
CPT/HCPCS: 70450; 71260; 72125; 72129; 72132; 73610; 73630; 74177; 80048; 80053; 85025; 94150; 97167; 99285; C9113; J2270; J7030; Q9967